=== PATIENT | male | born 1940 | race Hispanic/Latino ===

== ENCOUNTER 2018-03-02 16:40 | Inpatient (IN) | payer MEDICARE ==
[~2018-03-02] VITALS: Ht 170.2 cm; Wt 89.6 kg
[2018-03-02 17:40] LABS: BASOPHILS % 0.2 % (0.0-1.0); EOSINOPHILS # (AUTO) 0.1 (0.0-0.4); EOSINOPHILS % 0.5 % (0.0-6.0); HEMATOCRIT 49.7 % (38.2-49.6); LYMPHOCYTES % 7.4 % (18.0-39.1); MEAN CORPUSCULAR HEMOGLOBIN 30.1 pg (28-32); MEAN CORPUSCULAR HGB CONC 32.2 g/dL (31-35); MEAN CORPUSCULAR VOLUME 93.4 fL (81-99); MONOCYTES # (AUTO) 0.6 (0.2-0.8); MONOCYTES % 4.7 % (4.4-11.3); NEUTROPHILS # (AUTO) 11.2 (2.1-6.9); NEUTROPHILS % 86.7 % (38.7-80.0); PLATELET COUNT 239 x10e3/uL (140-360); RED BLOOD COUNT 5.32 x10e6/uL (4.3-5.7); RED CELL DISTRIBUTION WIDTH 13.7 % (11.7-14.4)
[2018-03-02 17:52] LABS: INR 1.08
[2018-03-02] MEDS ORDERED: SODIUM CHLORIDE 0.9% 1000ML 1,000 ML IV SCH (18:00)
[2018-03-02 18:01] LABS: ALANINE AMINOTRANSFERASE 56 IU/L (0-55); ALBUMIN 2.8 g/dL (3.5-5.0); ALBUMIN/GLOBULIN RATIO 0.5 (0.8-2.0); ALKALINE PHOSPHATASE 232 IU/L (40-150); AMYLASE 42 U/L (25-125); ANION GAP 18.9 mmol/L (8-16); BLOOD UREA NITROGEN 15 mg/dL (7-26); BUN/CREATININE RATIO 18 (6-25); CALCIUM 9.6 mg/dL (8.4-10.2); CARBON DIOXIDE 26 mmol/L (22-29); CHLORIDE 94 mmol/L (98-107); CREATINE KINASE 382 IU/L (30-200); CREATININE, SERUM 0.84 mg/dL (0.72-1.25); EST GLOMERULAR FILTRATION RATE > 60 ML/MIN (60-); GLUCOSE 367 mg/dL (74-118); LIPASE 14 U/L (8-78); POTASSIUM 3.9 mmol/L (3.5-5.1); SODIUM 135 mmol/L (136-145)
--- NOTE | 2018-03-02 18:31 | Diagnostic Imaging Report ---
EXAMINATION: Head CT HISTORY: Status post fall, hip pain, evaluate for intracranial hemorrhage COMPARISON: None. TECHNIQUE: Multidetector axial images were obtained without contrast from the foramen magnum to the vertex . The images were reconstructed using brain and bone algorithms. Thin section brain images were reformatted into coronal and sagittal planes. Image quality: Motion/streaking artifact limits the evaluation of the skull base and posterior cranial fossa. Dose modulation, iterative reconstruction, and/or weight based adjustment of the mA/kV was utilized to reduce the radiation dose to as low as reasonably achievable. FINDINGS: Parenchyma: 1. Moderate confluent supratentorial white matter hypodensities, most likely nonspecific chronic microvascular ischemic changes. 2. Cortical and subcortical encephalomalacia in the right occipital lobe, most likely the sequela from remote infarct in the right posterior cerebral artery distribution. 3. Small chronic lacunar infarct in the left putamen and right posterior lentiform nucleus as well as the bilateral frontal deep white matter. 4. No mass or hemorrhage. No CT evidence of acute territorial vascular insult. Extra-axial spaces:No abnormal density. No extra-axial fluid collections Brain volume: Normal for age. Ventricles: No hydrocephalus or displacement. Arteries: No density suggestive of thrombus. Dural sinuses: No abnormal density. Extra-axial spaces: No abnormal density. Foramen magnum: No mass, Chiari malformation, or basilar invagination. Sella: No obvious mass. Paranasal/mastoid sinuses: Imaged portions unremarkable. Skull/Scalp: No lytic or blastic lesions. No fractures. IMPRESSION: 1. No acute intracranial hemorrhage. 2. Moderate chronic microvascular ischemic changes. 3. Chronic right occipital infarct. Signed by: Dr. Jossie Pearl M.D. on 03/02/2018 6:26 PM
[2018-03-02] MEDS: VANCOMYCIN 1GM/NS 250 ML 250 ML IV SCH (18:35)
[2018-03-02] MEDS: CEFEPIME HCL 1 GM VIAL IV SCH (18:35)
--- NOTE | 2018-03-02 18:35 | Diagnostic Imaging Report ---
EXAMINATION: CT of the cervical spine HISTORY: Status post fall, neck pain COMPARISON: None available TECHNIQUE: Multidetector helical axial images were obtained without contrast from the foramen magnum to T1. The images were reconstructed using bone and soft tissue algorithms and were viewed in axial, sagittal and coronal planes. Dose modulation, iterative reconstruction, and/or weight based adjustment of the mA/kV was utilized to reduce the radiation dose to as low as reasonably achievable. FINDINGS: Alignment: Normal alignment and lordosis Soft tissues: Normal Vertebrae: Normal height and density. No acute fracture, infection or neoplasm Degenerative changes: C1-C2: Degenerative changes without stenosis. C2-C3: Normal C3-C4: Prominent facet arthrosis on the right side without stenoses C4-C5: Prominent bilateral facet arthrosis without stenoses C5-C6: Prominent bilateral facet arthrosis with mild foraminal stenoses C6-C7: Disc osteophyte formation, bilateral uncovertebral and facet arthrosis. Moderate foraminal stenoses on the left and moderately severe on the right. C7-T1: Normal Incidental findings: Partially visualized ill-defined opacity in the left lung apex. IMPRESSION: 1. No acute cervical spine postraumatic abnormalities. 2. Chronic multilevel degenerative changes. 3. Partially visualized left lung opacity. Note: Acute postraumatic spinal cord, vascular or ligamentous injuries cannot adequately be assessed by CT. Signed by: Dr. Jossie Pearl M.D. on 03/02/2018 6:30 PM
--- NOTE | 2018-03-02 18:52 | Diagnostic Imaging Report ---
PELVIS X-RAY - 1 VIEW HISTORY: \S\R/O FX \S\[id number] \S\0 \S\Y COMPARISON: None available. FINDINGS: Bones: No acute displaced fracture. Osseous alignment is within normal limits. Joints: Degenerative changes of the hips and sacroiliac joints. Advanced degenerative disease of L5-S1. Soft tissues: The soft tissues appear unremarkable. IMPRESSION: No acute radiographic abnormality. Signed by: Dr. Sil Lopez M.D. on 03/02/2018 6:47 PM
--- NOTE | 2018-03-02 18:55 | Diagnostic Imaging Report ---
EXAMINATION: CHEST SINGLE (PORTABLE) INDICATION: Trauma \S\ERMD ORDER \S\[id number] \S\1810 \S\Y COMPARISON: None FINDINGS: AP view TUBES and LINES: ICD device overlying the left lower chest with leads overlying the right ventricle and coronary sinus. LUNGS: Lungs are well inflated. Lungs are clear. Bilateral interstitial edema. PLEURA: No pleural effusion or pneumothorax. HEART AND MEDIASTINUM: Mild enlargement of the cardiac silhouette. Atherosclerotic calcifications of the aortic arch. BONES AND SOFT TISSUES: No acute osseous lesion. Soft tissues are unremarkable. The ribs behind the ICD device cannot be evaluated. UPPER ABDOMEN: No free air under the diaphragm. IMPRESSION: No acute posttraumatic abnormalities. Cardiomegaly with associated bilateral interstitial edema. Signed by: Dr. Sil Lopez M.D. on 03/02/2018 6:50 PM
--- NOTE | 2018-03-02 18:55 | Diagnostic Imaging Report ---
LEFT SHOULDER X-RAY - 2 VIEWS HISTORY: Fall \S\ORDER PLACED BY MD \S\[id number] \S\1810 \S\Y COMPARISON: Chest radiograph 03/02/2018 FINDINGS: Bones: No acute displaced fracture. Osseous alignment is within normal limits. Joints: The joint spaces are well-maintained. Soft tissues: Partially visualized left ICD device. IMPRESSION: No acute radiographic abnormality. Signed by: Dr. Sil Lopez M.D. on 03/02/2018 6:49 PM
--- NOTE | 2018-03-02 18:57 | Diagnostic Imaging Report ---
LEFT FOOT X-RAY - 2 VIEWS HISTORY: \S\ischemic toes, rule out osteomylitis, \S\[id number] \S\1809 COMPARISON: None available. FINDINGS: Bones: No acute displaced fracture. No cortical erosions. Indentation of the distal left first metatarsal with sclerotic margins appears chronic change. Osseous alignment is within normal limits. Joints: The joint spaces are well-maintained. Calcaneal enthesopathic. Soft tissues: The soft tissues appear unremarkable. IMPRESSION: No acute radiographic abnormality. Signed by: Dr. Sil Lopez M.D. on 03/02/2018 6:51 PM
[2018-03-02 19:14] LABS: CLARITY,URINE CLOUDY (CLEAR); COLOR,URINE YELLOW (YELLOW); KETONES,URINE NEGATIVE (NEGATIVE); LEUKOCYTE ESTERASE ,URINE NEGATIVE (NEGATIVE); NITRITE,URINE NEGATIVE (NEGATIVE); PROTEIN,URINE DIPSTICK 1+ (NEGATIVE); URINE UROBILINOGEN 0.2 mg/dL (0.2 - 1)
[2018-03-02 19:15] LABS: BILIRUBIN,URINE NEGATIVE (NEGATIVE)
[2018-03-02 19:23] LABS: BACTERIA,URINE MODERATE /HPF; EPITHELIAL CELLS,URINE FEW /LPF; RBC,URINE 0-5 /HPF (0-5); WBC,URINE (MAN) 0-5 /HPF (0-5); YEAST,URINE MANY
[2018-03-02] MEDS ORDERED: HEPARIN SOD (PORCINE) 5,000 UNIT/ML VIAL IV ONE (19:30)
[2018-03-02] MEDS ORDERED: ASPIRIN 81 MG CHEW TAB PO ONE (20:15)
[2018-03-02] MEDS ORDERED: ONDANSETRON HCL INJ 2 MG/ML VIAL IV PRN (20:15)
[2018-03-02] MEDS ORDERED: DEXTROSE 50% SYRINGE 50 ML IV PRN (20:15)
[2018-03-02] MEDS: HEPARIN 25,000U/0.45% NS 250ML 1,400 UNIT in SODIUM CHLORIDE 0.9% 250ML 0 ML IV SCH (20:20)
[2018-03-02] MEDS: INSULIN REGULAR, HUMAN 100 UNIT/1 ML 3ML VIAL SQ SCH (21:00)
[2018-03-02 22:00] VITALS: BP 148/82
[2018-03-03] VITALS (33 sets, daily range): BP systolic 118–162; BP diastolic 65–110
[2018-03-03 05:09] LABS: BASOPHILS % 0.1 % (0.0-1.0); EOSINOPHILS # (AUTO) 0.2 (0.0-0.4); EOSINOPHILS % 1.2 % (0.0-6.0); HEMATOCRIT 38.6 % (38.2-49.6); HEMOGLOBIN 12.3 g/dL (14.0-18.0); LYMPHOCYTES # (AUTO) 1.1 (1.0-3.2); LYMPHOCYTES % 7.6 % (18.0-39.1); MEAN CORPUSCULAR HEMOGLOBIN 29.4 pg (28-32); MEAN CORPUSCULAR HGB CONC 31.9 g/dL (31-35); MEAN CORPUSCULAR VOLUME 92.3 fL (81-99); MONOCYTES # (AUTO) 1.2 (0.2-0.8); NEUTROPHILS # (AUTO) 11.9 (2.1-6.9); NEUTROPHILS % 82.4 % (38.7-80.0); PLATELET COUNT 179 x10e3/uL (140-360); RED BLOOD COUNT 4.18 x10e6/uL (4.3-5.7); RED CELL DISTRIBUTION WIDTH 13.6 % (11.7-14.4)
[2018-03-03] MEDS: CEFEPIME HCL 1 GM VIAL IV SCH ×2 (05:33→17:18)
[2018-03-03] MEDS ORDERED: ACETAMINOPHEN 325 MG TAB PO PRN (06:45)
[2018-03-03] MEDS: INSULIN REGULAR, HUMAN 100 UNIT/1 ML 3ML VIAL SQ SCH ×4 (07:30→20:47)
[2018-03-03 08:37] LABS: CREATINE KINASE MB 3.1 ng/mL (0-5.0)
[2018-03-03 08:56] LABS: ALANINE AMINOTRANSFERASE 40 IU/L (0-55); ALBUMIN 2.1 g/dL (3.5-5.0); ALBUMIN/GLOBULIN RATIO 0.5 (0.8-2.0); ALKALINE PHOSPHATASE 139 IU/L (40-150); ANION GAP 14.4 mmol/L (8-16); BLOOD UREA NITROGEN 14 mg/dL (7-26); BUN/CREATININE RATIO 21 (6-25); CALCIUM 8.4 mg/dL (8.4-10.2); CARBON DIOXIDE 25 mmol/L (22-29); CHLORIDE 101 mmol/L (98-107); CHOL/HDL RATIO 3.2 (3.9-4.7); CHOLESTEROL 87 MD/DL (0-199); CREATININE, SERUM 0.67 mg/dL (0.72-1.25); EST GLOMERULAR FILTRATION RATE > 60 ML/MIN (60-); GLUCOSE 192 mg/dL (74-118); HDL CHOLESTEROL 27 MG/DL (40-60); LDL CHOLESTEROL 48 MG/DL (60-130); MAGNESIUM 1.4 MG/DL (1.3-2.1); POTASSIUM 3.4 mmol/L (3.5-5.1); SODIUM 137 mmol/L (136-145); TRIGLYCERIDES 59 MG/DL (0-149)
[2018-03-03] MEDS: PANTOPRAZOLE 40 MG 10ML VIAL IV SCH (09:00)
[2018-03-03] MEDS: SENNOSIDES 8.6 MG TAB PO SCH (09:00)
[2018-03-03] MEDS: VANCOMYCIN 1GM/NS 250 ML 250 ML IV SCH ×2 (09:00→21:00)
[2018-03-03] MEDS: HEPARIN 25,000U/0.45% NS 250ML 1,400 UNIT in SODIUM CHLORIDE 0.9% 250ML 0 ML IV SCH (12:07)
[2018-03-03 12:10] LABS: CREATINE KINASE MB 0.8 ng/mL (0-5.0)
--- NOTE | 2018-03-03 12:36 | Consultation ---
DATE OF CONSULTATION: March 03, 2018 CARDIOLOGY CONSULTATION REQUESTING PHYSICIAN: Dr. Aryan Aponte REASON FOR CONSULTATION: [id number] myocardial infarction and peripheral arterial disease. HISTORY OF PRESENT ILLNESS: This is a 77-year-old man with history of atrial fibrillation, coronary artery disease with prior myocardial infarction, history of CVA with residual hemiparesis and aphasia, hypertension, diabetes mellitus, hyperlipidemia, permanent pacemaker implantation, and reported congestive heart failure, who presented from his group home after a fall. History is limited due to the patient's confusion. All history is obtained from the electronic medical record. The patient apparently fell out of bed yesterday morning and was brought to [facility] for evaluation. In the ER, he was found to have elevated troponin and occlusion of the distal left superficial femoral artery. He was admitted for further evaluation. The patient denies any chest pain or shortness of breath. No further history could be obtained. REVIEW OF SYSTEMS: Unable to obtain secondary to the patient's mental status. PAST MEDICAL HISTORY 1. Atrial fibrillation. 2. History of CVA with resulting left hemiparesis and aphasia. 3. Coronary artery disease with prior myocardial infarction. 4. Reported history of congestive heart failure. 5. Diabetes mellitus. 6. Hypertension. 7. Hyperlipidemia. 8. Status post permanent pacemaker implantation. PAST SURGICAL HISTORY: Cholecystectomy. ALLERGIES: NO KNOWN DRUG ALLERGIES. MEDICATIONS: Please see medication list once obtained from the group home. SOCIAL HISTORY: Currently resides in a group home. No further history could be obtained due to patient confusion. FAMILY HISTORY: Noncontributory. PHYSICAL EXAMINATION VITAL SIGNS: Temperature 98.2 degrees, pulse 69, respiratory rate 12, blood pressure 153/88, oxygen saturation 100% on room air. GENERAL: Elderly man in no acute distress, well developed and well nourished. HEENT: Normocephalic and atraumatic. Pupils are equal. No scleral icterus. NECK: Supple. No thyromegaly or cervical lymphadenopathy. LUNGS: Clear to auscultation bilaterally. No wheezes or crackles. CARDIOVASCULAR: Normal rate, regular rhythm. No murmur. Normal S1 and S2. ABDOMEN: Soft. Nontender. EXTREMITIES: Cool to palpation in the distal left lower extremity with a soft-tissue abrasion noted on the left foot. LABS: WBC 14.42, hemoglobin 12.3, hematocrit 38.6, platelets 179. Sodium 137, potassium 3.4, chloride 101, CO2 25, BUN 14, creatinine 0.67. BNP 1332. Troponin I 0.423. Cholesterol 87, triglycerides 59, LDL 48, HDL 27. Urine culture is growing gram-negative bacilli. IMPRESSION 1. Elevated troponin. 2. Peripheral arterial disease with occlusion of the left superficial femoral artery. 3. Atrial fibrillation. 4. Coronary artery disease, status post prior myocardial infarction. 5. Reported history of congestive heart failure, status post implantable cardioverter-defibrillator. 6. Diabetes mellitus. 7. Hypertension. 8. Hyperlipidemia. 9. 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 RECOMMENDATIONS: Obtain echocardiogram. Will discuss cardiac catheterization and peripheral angiogram with the patient's power of litigation attorney. We are attempting to contact them at this time but have not been able to reach the family. In the meantime, continue heparin drip. Trend cardiac enzymes. Antibiotics per primary service. The patient will likely need further diuresis once his acute issues have resolved. Obtain ICD interrogation. Thank you for this consult. We will continue to follow. Job#: [id number]
--- NOTE | 2018-03-03 13:14 | History and Physical ---
CHIEF COMPLAINT: Left foot, ischemic changes. HISTORY OF PRESENT ILLNESS: This is a 77-year-old man who is a resident of [facility], now being sent over to the hospital due to ischemic change in the left foot. Patient is a poor historian unable to provide much history and he has speech impairment due to previous stroke. PAST MEDICAL HISTORY: Hypotension systolic congestive heart failure with ventricular ejection fraction 25 to 30%, status post AICD, hypertension, stroke, atrial fibrillation, diabetes mellitus, syncope, pneumonia. PAST SURGICAL HISTORY: AICD placement, status post ablation of atrial fibrillation. ALLERGIES: PER ELECTRONIC MEDICAL RECORD. SOCIAL HISTORY: Patient lives with his daughter. He is . He quit cigarettes in 2002. MEDICATIONS: Per electronic medical record. REVIEW OF SYSTEMS: Unobtainable. PHYSICAL EXAMINATION VITAL SIGNS: Have been reviewed. GENERAL: A tired-appearing man resting in bed. HEENT: Anicteric. CARDIOVASCULAR: Normal S1 and S2. LUNGS: He has bilateral breath sounds. ABDOMEN: Soft, nontender. EXTREMITIES: He has right pedal edema. He has left foot ischemic changes at the toes, blue black changes, cold left foot, unable to palpate the dorsalis pedis on the left foot. NEUROLOGIC: The patient mumbles, but he is awake and alert. SKIN: Dry. PSYCHIATRIC: Flat affect. LABS: Reviewed. MEDICATIONS: Reviewed. ASSESSMENT AND PLAN: This is a 77-year-old man with; 1. Left foot ischemia. 2. Diabetes mellitus type 2. 3. Acute exacerbation of systolic congestive heart failure. 4. Elevated troponin. 5. Transaminitis. 6. Urinary tract infection. 7. Pulmonary edema. 8. Paroxysmal atrial fibrillation as well as left bundle branch block. 9. History of stroke. PLAN 1. Heparin drip. 2. Cardiology for heart catheterization and angiogram. 3. Recheck labs this afternoon. 4. Podiatry consultation. 5. Continue IV vancomycin and IV cefepime for signs of early sepsis with gram-negative billy urinary tract infection. 6. Use TPI while on anticoagulation. 7. Morphine for pain. 8. Monitor closely. 9. Followup labs this afternoon and followup cardiology interventions. Job#: [id number] AYLEEN
[2018-03-03] MEDS ORDERED: LIDOCAINE HCL 2% LOCAL 20 ML VIAL ONE (13:31)
[2018-03-03] MEDS ORDERED: HEPARIN SOD/SOD CHLORIDE 2,000 ML ONE (13:31)
[2018-03-03] MEDS ORDERED: IOPAMIDOL 300MG/ML 100 ML INFUS..BTL IV ONE (13:32)
[2018-03-03] MEDS ORDERED: IOPAMIDOL 370 MG/ML 200 ML INFUS..BTL INJ ONE (13:32)
[2018-03-03] MEDS ORDERED: SODIUM CHLORIDE 0.9% 1000ML 1,000 ML ONE (13:57)
[2018-03-03] MEDS ORDERED: MIDAZOLAM HCL 2 MG/2 ML VIAL ONE (14:00)
[2018-03-03] MEDS ORDERED: FENTANYL CITRATE/PF 100MCG/2 ML INJ ONE (14:01)
[2018-03-03] MEDS ORDERED: BIVALIRUDIN 250 MG/VIAL IV ONE (14:48)
[2018-03-03] MEDS ORDERED: SODIUM CHLORIDE 0.9% 50ML 50 ML ONE (14:48)
[2018-03-03 16:47] LABS: HEMOGLOBIN 12.9 g/dL (14.0-18.0)
[2018-03-03] MEDS ORDERED: STERILE WATER IV SCH (17:00)
[2018-03-03] MEDS ORDERED: ALTEPLASE IV SCH (17:00)
[2018-03-03 17:02] LABS: ANION GAP 16.8 mmol/L (8-16); BLOOD UREA NITROGEN 15 mg/dL (7-26); BUN/CREATININE RATIO 22 (6-25); CALCIUM 8.6 mg/dL (8.4-10.2); CARBON DIOXIDE 23 mmol/L (22-29); CHLORIDE 101 mmol/L (98-107); CREATININE, SERUM 0.69 mg/dL (0.72-1.25); EST GLOMERULAR FILTRATION RATE > 60 ML/MIN (60-); GLUCOSE 141 mg/dL (74-118); MAGNESIUM 1.5 MG/DL (1.3-2.1); POTASSIUM 3.8 mmol/L (3.5-5.1); SODIUM 137 mmol/L (136-145)
--- NOTE | 2018-03-03 19:34 | Operative Report ---
DATE OF PROCEDURE: March 03, 2018 PROCEDURE: Cardiac catheterization. INDICATIONS: Wiu-PU-mciulquea DC and acute limb ischemia of the left lower extremity. PRE-SEDATION ASSESSMENT: Medical history, social history, and previous experience with anesthesia were reviewed and documented in the preoperative medical record. Results of relevant diagnostic studies were reviewed. Planned choice of anesthesia, risks, complications, benefits and alternatives were discussed with the patient's power of assistant city attorney. Patient was deemed an appropriate candidate for moderate sedation for this procedure. CONSENT: The benefits, risks, complications and alternatives to the procedure were discussed with the patient's power of assistant city attorney, his [id number], Ms. Mota, and informed consent was obtained prior to the procedure. MEDICATIONS: Please see nursing notes for medications administered during the procedure. PROCEDURE: The patient was brought to the cardiac catheterization laboratory in a fasting state. Right groin was prepped and draped in a sterile fashion, and 1% lidocaine was used to infiltrate the right groin over the right common femoral artery. A 5-Guinean sheath was placed in the right common femoral artery using the modified Seldinger technique. Coronary angiography was performed using a Anthony left and Anthony right 5-Guinean catheters. A left heart cath was performed using the Anthony right catheter. All catheters were removed over a wire. Prior to performing coronary angiography, a 5-Guinean Omni Flush catheter was placed in the abdominal aorta over the wire, and abdominal aortography was performed. A stiff angled Glidewire was used to access the contralateral common iliac artery and advanced into the left common femoral artery. The Omni Flush catheter was advanced into the left SFA, and BSA imaging was performed. The stiff angled Glidewire was replaced in the left SFA, and the Omni Flush catheter was removed. A 5-Guinean sheath was exchanged for a 6-Guinean 90 cm Destination sheath, which was placed in the left SFA just above the point of occlusion. Primary thrombectomy was performed through the sheath with a 60 mL syringe. Angiomax bolus and drip were started. A Roadrunner wire was advanced distally, and a 20 cm tPA catheter was placed at the point of occlusion. The sheath was sutured in place, and a dressing was applied. Case ended without any complications. Estimated blood loss approximately 60 mL. SIGNIFICANT FINDINGS: Right dominant coronary system with no significant coronary artery disease. No significant disease of bilateral iliac arteries. Left SFA has an acute occlusion with thrombus in the mid to distal portion. Despite significant thrombectomy and removal of thrombus, no significant reflow was achieved. Therefore, a thrombectomy catheter was placed. COMPLICATIONS: None. SPECIMENS REMOVED: None. IMPLANTS: None. ESTIMATED BLOOD LOSS: 60 mL. RECOMMENDATIONS: Will plan on infused intraarterial tPA at the rate of 0.1 mg per kg per minute for 12 hours overnight. Continue Angiomax infusion concomitantly. Will plan to bring the patient back to the mobile lab technician tomorrow for further treatment of his peripheral arterial disease and acute limb ischemia. Thank you for this consult. Will continue to follow. Job#: [id number] EV
[2018-03-03] MEDS: STERILE WATER IV SCH (20:27)
[2018-03-03] MEDS: ALTEPLASE IV SCH (20:27)
[2018-03-03] MEDS: SODIUM CHLORIDE 0.9% IV SCH ×2 (20:43→21:00)
[2018-03-03] MEDS: BIVALIRUDIN IV SCH ×2 (20:43→21:00)
[2018-03-03] MEDS: MORPHINE SULFATE 2 MG/ML SYR IV PRN (21:43)
[2018-03-04] VITALS (78 sets, daily range): BP systolic 80–143; BP diastolic 52–100
[2018-03-04] MEDS: BIVALIRUDIN IV SCH ×5 (00:07→17:00)
[2018-03-04] MEDS: SODIUM CHLORIDE 0.9% IV SCH ×5 (00:07→17:00)
[2018-03-04] MEDS: STERILE WATER IV SCH (02:26)
[2018-03-04] MEDS: ALTEPLASE IV SCH (02:26)
[2018-03-04 05:10] LABS: BASOPHILS % 0.2 % (0.0-1.0); EOSINOPHILS # (AUTO) 0.1 (0.0-0.4); EOSINOPHILS % 0.5 % (0.0-6.0); HEMATOCRIT 29.9 % (38.2-49.6); HEMOGLOBIN 9.8 g/dL (14.0-18.0); LYMPHOCYTES # (AUTO) 0.9 (1.0-3.2); LYMPHOCYTES % 6.7 % (18.0-39.1); MEAN CORPUSCULAR HEMOGLOBIN 30.2 pg (28-32); MEAN CORPUSCULAR HGB CONC 32.8 g/dL (31-35); MONOCYTES % 7.1 % (4.4-11.3); NEUTROPHILS # (AUTO) 11.3 (2.1-6.9); NEUTROPHILS % 84.9 % (38.7-80.0); PLATELET COUNT 201 x10e3/uL (140-360); RED BLOOD COUNT 3.25 x10e6/uL (4.3-5.7); RED CELL DISTRIBUTION WIDTH 13.9 % (11.7-14.4)
[2018-03-04 05:33] LABS: ANION GAP 14.2 mmol/L (8-16); BLOOD UREA NITROGEN 17 mg/dL (7-26); BUN/CREATININE RATIO 27 (6-25); CALCIUM 7.8 mg/dL (8.4-10.2); CARBON DIOXIDE 23 mmol/L (22-29); CHLORIDE 103 mmol/L (98-107); CREATININE, SERUM 0.62 mg/dL (0.72-1.25); EST GLOMERULAR FILTRATION RATE > 60 ML/MIN (60-); GLUCOSE 149 mg/dL (74-118); POTASSIUM 3.2 mmol/L (3.5-5.1); SODIUM 137 mmol/L (136-145)
[2018-03-04] MEDS: CEFEPIME HCL 1 GM VIAL IV SCH ×2 (05:52→18:14)
[2018-03-04] MEDS: INSULIN REGULAR, HUMAN 100 UNIT/1 ML 3ML VIAL SQ SCH ×4 (07:30→20:29)
[2018-03-04] MEDS ORDERED: POTASSIUM CHLORIDE 20 MEQ/100 ML IV ONE (08:00)
[2018-03-04 08:11] LABS: HEMATOCRIT 30.7 % (38.2-49.6); HEMOGLOBIN 10.1 g/dL (14.0-18.0)
[2018-03-04] MEDS: SENNOSIDES 8.6 MG TAB PO SCH (09:00)
[2018-03-04] MEDS: VANCOMYCIN 1GM/NS 250 ML 250 ML IV SCH ×2 (09:31→20:28)
[2018-03-04] MEDS: PANTOPRAZOLE 40 MG 10ML VIAL IV SCH (09:31)
[2018-03-04 13:53] LABS: HEMATOCRIT 30.1 % (38.2-49.6); HEMOGLOBIN 9.5 g/dL (14.0-18.0)
--- NOTE | 2018-03-04 14:14 | Consultation ---
DATE OF CONSULTATION: March 04, 2018 PODIATRY CONSULTATION REASON FOR CONSULTATION: Left foot ischemia. HISTORY OF PRESENT ILLNESS: Mr. Mota is a pleasant 77[facility]-old [facility] resident who was admitted secondary to ischemic changes associated to the left foot. Currently in the ICU. Has been endovascularly intervened by Interventional Cardiology. PAST MEDICAL HISTORY: Hypertension, heart failure, hypertension, stroke, atrial fibrillation, diabetes and pneumonia. PAST SURGICAL HISTORY: AICD and recent endovascular intervention left lower extremity. ALLERGIES: Per the EMR. SOCIAL HISTORY: residential resident. FAMILY HISTORY: Noncontributory. ELEVEN-POINT REVIEW OF SYSTEMS: Unobtainable. PHYSICAL EXAMINATION GENERAL: No apparent distress. VITAL SIGNS: Stable. He is afebrile. HEENT: Normocephalic, atraumatic, anicteric. ABDOMEN: Soft, nontender, nondistended. RESPIRATORY: Symmetrical expansion. No distress. PSYCHIATRIC: Flat affect. EXTREMITIES: Indeed significant cyanosis associated to the left lower extremity, particularly the foot along the forefoot area with very cool to touch digits. Midfoot, hindfoot and the rest of the extremity are warm to touch. ASSESSMENT: Gangrenous changes left foot. PLAN: The patient has been endovascularly intervened. At this point will need to await clinical progression and ultimately start making decisions as to how to proceed. In the interim, keep the extremity protected, dry and intact. I would like to thank Dr. Aponte for allowing me the opportunity to participate in the care of this patient. Job#: [id number] EV
[2018-03-04] MEDS ORDERED: LIDOCAINE HCL 2% LOCAL 20 ML VIAL ONE (14:39)
[2018-03-04] MEDS ORDERED: HEPARIN SOD/SOD CHLORIDE 2,000 ML ONE (14:40)
[2018-03-04] MEDS ORDERED: SODIUM CHLORIDE 0.9% 1000ML 1,000 ML ONE ×2 (14:40→16:28)
[2018-03-04] MEDS ORDERED: IOPAMIDOL 300MG/ML 100 ML INFUS..BTL IV ONE ×2 (14:40→16:03)
[2018-03-04] MEDS ORDERED: FENTANYL CITRATE/PF 100MCG/2 ML INJ ONE (14:42)
[2018-03-04] MEDS ORDERED: MIDAZOLAM HCL 2 MG/2 ML VIAL ONE (14:42)
[2018-03-04] MEDS ORDERED: VERAPAMIL HCL 2.5 MG/ML 2 ML VIAL ONE (16:28)
[2018-03-04] MEDS ORDERED: ASPIRIN 325 MG TAB ONE (16:54)
[2018-03-04] MEDS: APIXABAN 5 MG TABLET PO SCH (20:28)
--- NOTE | 2018-03-04 21:48 | Operative Report ---
DATE OF PROCEDURE: March 04, 2018 PROCEDURE: Cardiac catheterization report. INDICATIONS FOR PROCEDURE: Acute limb ischemia of left lower extremity with left superficial femoral artery and popliteal thrombosis. PRE-SEDATION ASSESSMENT: Medical history, social history, previous experience with anesthesia was reviewed and documented, preoperative medical record results of relevant diagnostic studies were reviewed, planned choice of anesthesia, risks, complications, benefits, and alternatives were discussed. Patient was deemed appropriate candidate for moderate sedation. Consent, benefits, risks, complications, alternatives to the procedure were discussed to the patient's [id number], and informed consent was obtained over the phone. MEDICATIONS: Please see nursing notes for medications administered during the procedure. PROCEDURE: Patient was brought to the cardiac catheterization laboratory in a fasting state. Right groin was prepped and draped in a sterile fashion. Prior 90-cm sheath and thrombectomy catheter was in place. Catheter was removed over a wire. There was small residual thrombus seen in the distal SFA, which was aspirated with the 90-cm sheath. Peripheral angiography was performed of the distal SFA and [id number]-[id number] arteries, which showed 80% lesion in the popliteal artery, which was calcified and 90% lesion of the ostial anterior tibial, as well as the distal VENETIAN BLIND MACHINE OPERATOR of the posterior tibial artery. Decision was made to proceed with the PRESS SET UP of the anterior tibial, as well as the popliteal artery for PRESS SET UP of the anterior tibial artery. A 0.014-Whisper wire was used to cross the lesion. A 2.5- x 40-mm balloon was used to angioplasty the lesion at 18 atmospheres of pressure held for 3 minutes for PRESS SET UP of the popliteal artery. The Whisper wire was exchanged for ViperWire and 1.5 solid CSI bur was used at low and medium speeds to perform atherectomy of the popliteal artery. Drug-coated balloon angioplasty was performed using a 6.0- x 40-mm Lutonix balloon deployed at 8 atmospheres for 4 minutes. This provided excellent angiographic results. The long 90-cm sheath was then removed over a wire and a short 6-Trinidadian sheath was placed in the right common femoral artery. Runoff of the right lower extremity was performed through the short sheath. The sheath was removed and closed with Mynx vascular closure device with and manual compression. Achieved adequate hemostasis. Antiplatelet therapy was given in the director of cardiac cath lab using aspirin. Patient will be restarted on Eliquis later tonight after stopping his Angiomax. COMPLICATIONS: None. SPECIMEN REMOVED: None. IMPLANTS: None. ESTIMATED BLOOD LOSS: 50 mL. RECOMMENDATIONS 1. Stop Angiomax for 1 hour post procedure and start Eliquis 5 mg b.i.d. 2. Two hours of strict bedrest. 3. Continue optimal medical therapy and risk factor management. Thank you for this consult. Will continue to follow. Job#: [id number] CQ
[2018-03-05] VITALS (83 sets, daily range): BP systolic 69–151; BP diastolic 29–75
[2018-03-05] MEDS: MORPHINE SULFATE 2 MG/ML SYR IV PRN ×2 (02:57→20:00)
[2018-03-05 04:45] LABS: BASOPHILS % 0.1 % (0.0-1.0); EOSINOPHILS % 0.1 % (0.0-6.0); HEMATOCRIT 27.5 % (38.2-49.6); HEMOGLOBIN 8.7 g/dL (14.0-18.0); LYMPHOCYTES # (AUTO) 1.1 (1.0-3.2); LYMPHOCYTES % 5.4 % (18.0-39.1); MEAN CORPUSCULAR HEMOGLOBIN 30.1 pg (28-32); MEAN CORPUSCULAR HGB CONC 31.6 g/dL (31-35); MEAN CORPUSCULAR VOLUME 95.2 fL (81-99); MONOCYTES # (AUTO) 1.3 (0.2-0.8); MONOCYTES % 6.7 % (4.4-11.3); NEUTROPHILS # (AUTO) 17.4 (2.1-6.9); NEUTROPHILS % 86.9 % (38.7-80.0); PLATELET COUNT 201 x10e3/uL (140-360); RED BLOOD COUNT 2.89 x10e6/uL (4.3-5.7); RED CELL DISTRIBUTION WIDTH 14.3 % (11.7-14.4)
[2018-03-05 05:07] LABS: ALANINE AMINOTRANSFERASE 23 IU/L (0-55); ALBUMIN/GLOBULIN RATIO 0.6 (0.8-2.0); ALKALINE PHOSPHATASE 115 IU/L (40-150); ANION GAP 14.9 mmol/L (8-16); BLOOD UREA NITROGEN 20 mg/dL (7-26); BUN/CREATININE RATIO 27 (6-25); CALCIUM 7.8 mg/dL (8.4-10.2); CARBON DIOXIDE 21 mmol/L (22-29); CHLORIDE 108 mmol/L (98-107); CREATININE, SERUM 0.73 mg/dL (0.72-1.25); EST GLOMERULAR FILTRATION RATE > 60 ML/MIN (60-); GLUCOSE 145 mg/dL (74-118); POTASSIUM 3.9 mmol/L (3.5-5.1); SODIUM 140 mmol/L (136-145)
--- NOTE | 2018-03-05 05:55 | Progress Note ---
DATE: March 04, 2018 CARDIOLOGY PROGRESS NOTE SUBJECTIVE: Had thrombectomy and TRANSCRIPTION SPECIALIST of his left lower extremity today. Doing well post procedurally. OBJECTIVE VITAL SIGNS: Temperature 98.1, pulse 60, respiratory rate 16, blood pressure 119/60, satting 100% on room air. GENERAL: Chronically ill-appearing male, no acute distress. CARDIOVASCULAR: Regular rate and rhythm. No murmurs, rubs or gallops. Palpable carotid pulses. Palpable radial pulses. Palpable femoral pulses. LUNGS: Clear to auscultation bilaterally. ABDOMEN: Soft, nontender, nondistended. NEURO AND PSYCH: Patient is alert and oriented x0. TELEMETRY DATA: Reviewed. Shows paced rhythm. ASSESSMENT 1. Elevated troponin. 1. Peripheral arterial disease with acute occlusion of the left superficial femoral artery with thrombus. 2. Atrial fibrillation. 3. Coronary artery disease status post prior myocardial infarction. 4. Reported history of congestive heart failure status post biventricular implantable cardioverter-defibrillator. 5. Diabetes. 6. Hypertension. 7. Hyperlipidemia. 8. 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 RECOMMENDATIONS: Patient had a coronary angiogram done on March 03, showed no significant coronary artery disease. Had left lower extremity angiogram performed yesterday, showed acute thrombosis of his left distal SFA and popliteal artery. Had overnight tPA infusion with successful recanalization and aspiration thrombectomy. Performed secondary thrombectomy today with TRANSCRIPTION SPECIALIST of his popliteal and anterior tibial arteries with good 2-vessel runoff to the foot. Has ischemic toes that may require amputation in the future. Podiatry is following. Will start him on aspirin and Eliquis given his atrial fibrillation and acute thrombosis of his left SFA. Thank you for this consult. Will continue to follow. Job#: [id number] TOMMIE
[2018-03-05] MEDS: CEFEPIME HCL 1 GM VIAL IV SCH ×2 (06:07→19:30)
[2018-03-05] MEDS: INSULIN REGULAR, HUMAN 100 UNIT/1 ML 3ML VIAL SQ SCH ×3 (07:56→16:30)
--- NOTE | 2018-03-05 08:04 | Progress Note ---
DATE: March 04, 2018 TIME OF SERVICE: 6:30 p.m. Overnight, patient had a t-PA infusion. He is in the ICU. REVIEW OF SYSTEMS: Unobtainable. PHYSICAL EXAMINATION VITAL SIGNS: Reviewed. GENERAL APPEARANCE: A tired-appearing man resting in bed. HEENT: Anicteric. CARDIOVASCULAR: Normal S1/S2. LUNGS: Moderate breath sounds. ABDOMEN: Soft, nontender. EXTREMITIES: He has left foot ischemic changes. Dorsalis pedis cannot be palpated. Cool extremities. change of the toes. NEUROLOGIC: Mumbles, awake. SKIN: Dry. PSYCHIATRIC: Flat affect. LABS: Reviewed. MEDICATIONS: Reviewed. ASSESSMENT: An 77-year-old man. 1. Left ischemic foot. 2. Diabetes mellitus, type 2. 3. Acute exacerbation of systolic congestive heart failure. 4. Elevated troponin. 5. Transaminitis. 6. Urinary tract infection. 7. Pulmonary edema. 8. Paroxysmal atrial fibrillation. 9. Left bundle-branch block. 10. History of stroke. 11. Acute limb ischemia of the left leg. 12. Arterial thrombosis in the left superficial femoral artery. PLAN 1. He received heparin. 2. Received t-PA. 3. Heart catheterization pending. 4. IV antibiotics, vancomycin and cefepime. 5. Morphine for pain. 6. Monitor closely in the ICU. CRITICAL CARE TIME: More than 35 minutes. Job#: [id number] CQ
[2018-03-05] MEDS ORDERED: ASPIRIN 325 MG TAB PO SCH (09:00)
--- NOTE | 2018-03-05 09:02 | Progress Note ---
DATE: March 05, 2018 TIME OF SERVICE: 7 a.m. SUBJECTIVE: Overnight, the patient had a 2nd t-PA procedure with improvement in flow. Left heart cath was negative. The patient had coronary angiogram which was negative. REVIEW OF SYSTEMS: Unobtainable. PHYSICAL EXAMINATION VITAL SIGNS: Reviewed. GENERAL APPEARANCE: A tired-appearing man, resting in bed. HEENT: Anicteric. CARDIOVASCULAR: Normal S1, S2. LUNGS: Moderate breath sounds. ABDOMEN: Soft, nontender. EXTREMITIES: Left foot with blue-black changes. Pulses, unable to palpate dorsalis pedis, but the left foot is warm now and Doppler ultrasound detects pulse. SKIN: Dry. PSYCHIATRIC: Flat affect. NEUROLOGIC: He moves his extremities. LABS: Reviewed. MEDICATIONS: Reviewed. ASSESSMENT: The patient is a 77-year-old man with, 1. Acute limb ischemia of the left leg. 2. Acute thrombus of the superficial femoral artery in the left leg. 3. Diabetes mellitus type 2. Hemoglobin A1c was 6.7, LDL 48 and triglycerides 59. 4. Acute exacerbation of systolic congestive heart failure. 5. Elevated troponin. 6. Transaminitis. 7. Urinary tract infection. 8. Pulmonary edema. 9. Paroxysmal atrial fibrillation with left bundle-branch block. 10. History of stroke. PLAN 1. Continue aspirin and apixaban. 2. Leukocytosis is worse today. The patient remains on IV vancomycin and IV cefepime. 3. Urine is positive for Morganella morganii which is sensitive to cefepime. 4. Physical therapy consultation. 5. LTAC evaluation. 6. The patient may need amputation of the toes in the near future. Consult with podiatry. Job#: [id number]
[2018-03-05] MEDS ORDERED: SODIUM CHLORIDE 0.9% 250ML 250 ML ONE (09:06)
[2018-03-05] MEDS: SENNOSIDES 8.6 MG TAB PO SCH (09:12)
[2018-03-05] MEDS: VANCOMYCIN 1GM/NS 250 ML 250 ML IV SCH ×2 (09:12→21:00)
[2018-03-05] MEDS: ASPIRIN 81 MG ENTERIC COATED PO SCH (09:12)
[2018-03-05] MEDS: PANTOPRAZOLE 40 MG 10ML VIAL IV SCH (09:12)
[2018-03-05] MEDS: APIXABAN 5 MG TABLET PO SCH ×2 (09:12→21:00)
--- NOTE | 2018-03-05 10:14 | Progress Note ---
DATE: March 05, 2018 CARDIOLOGY PROGRESS NOTE SUBJECTIVE: The patient was somnolent. He did not respond to verbal or tactile stimuli. OBJECTIVE VITAL SIGNS: Temperature 98.3 degrees, pulse 60, respiratory rate 16, blood pressure 72/40, oxygen saturation 100% on room air. GENERAL: Chronically ill-appearing man in no acute distress. Somnolent. LUNGS: Clear to auscultation bilaterally with no wheezes or crackles. CARDIOVASCULAR: Normal rate, regular rhythm. No murmur. Normal S1 and S2. ABDOMEN: Soft, nontender. EXTREMITIES: Gangrenous changes of the left 4th and 5th toes. Palpable left dorsalis pedis and posterior tibial arteries. CARDIAC MEDICATIONS 1. Aspirin 81 mg p.o. daily. 2. Apixaban 5 mg p.o. q.12 h. LABS: WBC 20.03, hemoglobin 8.7, hematocrit 27.5, platelets 201. Sodium 140, potassium 3.9, chloride 108, CO2 21, BUN 20, creatinine 0.73. Urine culture growing Morganella morganii. TELEMETRY: Reviewed, paced. IMPRESSION 1. Elevated troponin. 1. Peripheral arterial disease with acute occlusion of the left superficial femoral artery with thrombus. 2. Atrial fibrillation. 3. Coronary artery disease, status post prior myocardial infarction. 4. Reported history of congestive heart failure, status post biventricular implantable cardioverter-defibrillator. 5. Diabetes mellitus. 6. Hypertension. 7. Hyperlipidemia. 8. 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 RECOMMENDATIONS: Patient had coronary angiogram done during admission without significant coronary artery disease. Left lower extremity peripheral angiogram revealed acute thrombosis in the distal left femoral artery and popliteal artery. He was treated with tPA infusion overnight with successful recanalization and aspiration thrombectomy. He now has 2-vessel runoff to the foot, although given gangrenous changes, he may need amputation in the future. Podiatry is following. Continue aspirin and Eliquis. Antibiotics per primary service. Monitor the patient closely in the ICU given hypotension. Supportive care. Thank you for this consult. Will continue to follow. Job#: [id number]
[2018-03-06] VITALS (88 sets, daily range): BP systolic 53–153; BP diastolic 29–119
[2018-03-06] MEDS: INSULIN REGULAR, HUMAN 100 UNIT/1 ML 3ML VIAL SQ SCH ×5 (00:47→21:00)
[2018-03-06] MEDS: MORPHINE SULFATE 2 MG/ML SYR IV PRN (04:36)
[2018-03-06 04:39] LABS: BASOPHILS % 0.1 % (0.0-1.0); EOSINOPHILS # (AUTO) 0.1 (0.0-0.4); EOSINOPHILS % 0.6 % (0.0-6.0); HEMATOCRIT 21.4 % (38.2-49.6); LYMPHOCYTES # (AUTO) 1.1 (1.0-3.2); LYMPHOCYTES % 5.3 % (18.0-39.1); MEAN CORPUSCULAR HEMOGLOBIN 30.4 pg (28-32); MEAN CORPUSCULAR HGB CONC 31.8 g/dL (31-35); MEAN CORPUSCULAR VOLUME 95.5 fL (81-99); MONOCYTES # (AUTO) 1.4 (0.2-0.8); MONOCYTES % 6.9 % (4.4-11.3); NEUTROPHILS # (AUTO) 17.7 (2.1-6.9); NEUTROPHILS % 85.1 % (38.7-80.0); PLATELET COUNT 173 x10e3/uL (140-360); RED BLOOD COUNT 2.24 x10e6/uL (4.3-5.7); RED CELL DISTRIBUTION WIDTH 14.4 % (11.7-14.4)
[2018-03-06 04:43] LABS: HEMOGLOBIN 6.8 g/dL (14.0-18.0)
[2018-03-06 05:00] LABS: ANION GAP 13.4 mmol/L (8-16); BLOOD UREA NITROGEN 20 mg/dL (7-26); BUN/CREATININE RATIO 31 (6-25); CARBON DIOXIDE 23 mmol/L (22-29); CHLORIDE 111 mmol/L (98-107); CREATININE, SERUM 0.65 mg/dL (0.72-1.25); EST GLOMERULAR FILTRATION RATE > 60 ML/MIN (60-); GLUCOSE 144 mg/dL (74-118); POTASSIUM 3.4 mmol/L (3.5-5.1); SODIUM 144 mmol/L (136-145)
[2018-03-06] MEDS: CEFEPIME HCL 1 GM VIAL IV SCH ×2 (06:01→17:21)
[2018-03-06] MEDS ORDERED: SODIUM CHLORIDE 0.9% 250ML 250 ML IV ONE (08:00)
[2018-03-06] MEDS ORDERED: POTASSIUM CHLORIDE 20MEQ/100ML 100 ML IV ONE (08:15)
[2018-03-06 08:27] LABS: FERRITIN 820.84 ng/mL (21.81-274.66)
[2018-03-06] MEDS: ASPIRIN 81 MG ENTERIC COATED PO SCH (08:45)
[2018-03-06] MEDS: SENNOSIDES 8.6 MG TAB PO SCH (08:45)
[2018-03-06] MEDS: PANTOPRAZOLE 40 MG 10ML VIAL IV SCH ×2 (08:47→20:33)
[2018-03-06] MEDS: METRONIDAZOLE 500MG/NS 100ML 100 ML IV SCH ×2 (08:47→17:21)
[2018-03-06] MEDS: VANCOMYCIN 1GM/NS 250 ML 250 ML IV SCH ×2 (09:29→20:33)
[2018-03-06] MEDS: HEPARIN 25,000U/0.45% NS 250ML 900 UNIT in SODIUM CHLORIDE 0.9% 250ML 0 ML IV SCH (09:43)
--- NOTE | 2018-03-06 09:54 | Progress Note ---
DATE: March 06, 2018 CARDIOLOGY PROGRESS NOTE SUBJECTIVE: The patient is awake but does not respond to questions. He is planned for 3 units PRBC transfusion today due to acute drop in hemoglobin to 6.8. OBJECTIVE VITAL SIGNS: Temperature 98.4 degrees, pulse 60, respiratory rate 18, blood pressure 96/45, oxygen saturation 100% on room air. GENERAL: Chronically ill-appearing man in no acute distress. Awake but not interactive. LUNGS: Clear to auscultation bilaterally with no wheezes or crackles. CARDIOVASCULAR: Normal rate, regular rhythm. No murmur. Normal S1 and S2. ABDOMEN: Soft, nontender. EXTREMITIES: Gangrenous changes of the left 4th and 5th toes. Dopplerable left dorsalis pedis and posterior tibial arteries. CARDIAC MEDICATIONS: Aspirin 81 mg p.o. daily. LABS: WBC 20.78, hemoglobin 6.8, hematocrit 21.4, platelets 173. Sodium 144, potassium 3.4, chloride 111, CO2 23, BUN 20, creatinine 0.65. TELEMETRY: V-paced. IMPRESSION 1. Elevated troponin. 1. Peripheral arterial disease with acute occlusion of the left superficial femoral artery with thrombus. 2. Atrial fibrillation. 3. Coronary artery disease, status post prior myocardial infarction. 4. Reported history of congestive heart failure, status post biventricular implantable cardioverter-defibrillator. 5. Diabetes mellitus. 6. Hypertension. 7. Hyperlipidemia. 8. 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 RECOMMENDATIONS: Patient underwent coronary angiogram during admission without significant coronary artery disease. Left lower extremity peripheral angiogram revealed acute thrombosis in the distal left femoral artery and popliteal artery. He was treated with tPA infusion overnight with successful recanalization and aspiration thrombectomy, with resulting 2-vessel runoff to the foot. Given the patient's gangrenous changes of the toes, he may need amputation in the future. Podiatry is following. With regards to the patient's acute anemia, Eliquis was discontinued by primary. We will start heparin drip in the meantime. GI consultation is pending. Antibiotics per primary service. Thank you for this consult. Will continue to follow. Job#: [id number]
[2018-03-06] MEDS: FUROSEMIDE INJ 10 MG/ML 2 ML VIAL IV SCH ×2 (16:05→19:04)
[2018-03-07] VITALS (19 sets, daily range): BP systolic 110–150; BP diastolic 69–121
[2018-03-07] MEDS: METRONIDAZOLE 500MG/NS 100ML 100 ML IV SCH ×3 (01:31→18:35)
[2018-03-07] MEDS: CEFEPIME HCL 1 GM VIAL IV SCH ×2 (05:17→18:35)
[2018-03-07 06:14] LABS: BASOPHILS % 0.2 % (0.0-1.0); EOSINOPHILS # (AUTO) 0.1 (0.0-0.4); EOSINOPHILS % 0.7 % (0.0-6.0); HEMATOCRIT 29.5 % (38.2-49.6); HEMOGLOBIN 9.8 g/dL (14.0-18.0); LYMPHOCYTES % 6.1 % (18.0-39.1); MEAN CORPUSCULAR HEMOGLOBIN 29.5 pg (28-32); MEAN CORPUSCULAR HGB CONC 33.2 g/dL (31-35); MEAN CORPUSCULAR VOLUME 88.9 fL (81-99); MONOCYTES # (AUTO) 1.1 (0.2-0.8); MONOCYTES % 6.3 % (4.4-11.3); NEUTROPHILS # (AUTO) 14.6 (2.1-6.9); NEUTROPHILS % 85.5 % (38.7-80.0); PLATELET COUNT 147 x10e3/uL (140-360); RED BLOOD COUNT 3.32 x10e6/uL (4.3-5.7); RED CELL DISTRIBUTION WIDTH 16.6 % (11.7-14.4)
[2018-03-07 06:39] LABS: ANION GAP 13.2 mmol/L (8-16); BLOOD UREA NITROGEN 19 mg/dL (7-26); BUN/CREATININE RATIO 29 (6-25); CARBON DIOXIDE 23 mmol/L (22-29); CHLORIDE 110 mmol/L (98-107); CREATININE, SERUM 0.65 mg/dL (0.72-1.25); EST GLOMERULAR FILTRATION RATE > 60 ML/MIN (60-); GLUCOSE 113 mg/dL (74-118); POTASSIUM 3.2 mmol/L (3.5-5.1); SODIUM 143 mmol/L (136-145)
--- NOTE | 2018-03-07 07:21 | Diagnostic Imaging Report ---
EXAM: ABDOMEN-1VIEW (KUB) DATE: 03/07/2018 6:00 AM INDICATION: NG tube placement COMPARISON: None FINDINGS: Metallic tip feeding tube present with tip overlying left upper quadrant/stomach. Cholecystectomy clips present. Moderate stool. Degenerative changes spine. IMPRESSION: Feeding tube as above. Of note, no NG tube identified to correspond with clinical indication. Correlation recommended. Signed by: Dr. Faustino Styles MD on 03/07/2018 7:17 AM
[2018-03-07] MEDS: INSULIN REGULAR, HUMAN 100 UNIT/1 ML 3ML VIAL SQ SCH ×3 (07:30→16:30)
[2018-03-07] MEDS: ASPIRIN 81 MG ENTERIC COATED PO SCH (09:00)
[2018-03-07] MEDS: SENNOSIDES 8.6 MG TAB PO SCH (09:00)
[2018-03-07] MEDS: HEPARIN 25,000U/0.45% NS 250ML 900 UNIT in SODIUM CHLORIDE 0.9% 250ML 0 ML IV SCH (09:30)
[2018-03-07] MEDS: VANCOMYCIN 1GM/NS 250 ML 250 ML IV SCH (09:32)
[2018-03-07] MEDS: PANTOPRAZOLE 40 MG 10ML VIAL IV SCH (09:32)
--- NOTE | 2018-03-07 10:22 | Progress Note ---
DATE: March 07, 2018 CARDIOLOGY PROGRESS NOTE SUBJECTIVE: The patient is more interactive today. Denied chest pain or shortness of breath. OBJECTIVE VITAL SIGNS: Temperature 98 degrees, pulse 58, respiratory rate 16, blood pressure 138/86, oxygen saturation 100% on room air. GENERAL: Elderly man, chronically ill-appearing, in no acute distress. Awake and slightly more interactive. Will nod and shake his head in response to questions and state simple requests. LUNGS: Clear to auscultation bilaterally with no wheezes or crackles. CARDIOVASCULAR: Normal rate, regular rhythm. No murmur. Normal S1 and S2. ABDOMEN: Soft, nontender. EXTREMITIES: Gangrenous changes of the left 4th and 5th toes. CARDIAC MEDICATIONS 1. Aspirin 81 mg p.o. daily. 2. Heparin drip. LABS: WBC 17.08, hemoglobin 9.8, hematocrit 29.5, platelets 147. Sodium 143, potassium 3.2, chloride 110, CO2 23, BUN 19, creatinine 0.65. TELEMETRY: V-paced. IMPRESSION 1. Elevated troponin. 1. Peripheral arterial disease with acute occlusion of the left superficial femoral artery with thrombus. 2. Atrial fibrillation. 3. Coronary artery disease, status post prior myocardial infarction. 4. Reported history of congestive heart failure, status post biventricular implantable cardioverter-defibrillator. 5. Diabetes mellitus. 6. Hypertension. 7. Hyperlipidemia. 8. 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 RECOMMENDATIONS: Patient underwent coronary angiogram during admission without significant coronary artery disease. Left lower extremity peripheral angiogram revealed acute thrombus in the distal left femoral artery and popliteal artery. He was treated with tPA infusion overnight with successful recanalization and aspiration thrombectomy, with resulting 2-vessel runoff to the foot. Given the patient's gangrenous changes in the toes, he may need amputation in the future. Podiatry is following. Continue heparin drip pending GI evaluation. Continue aspirin. Antibiotics per primary service. Thank you for this consult. We will continue to follow. Job#: [id number]
--- NOTE | 2018-03-07 11:31 | Diagnostic Imaging Report ---
PROCEDURE:X-RAY ABDOMEN - KUB COMPARISON:None. INDICATIONS:DOBHOFF PLACEMENT FINDINGS:Exam is degraded by patient motion. Dobbhoff feeding tube extends below the diaphragm but is looped upon itself with the tip near the GE junction. There are no dilated loops of bowel to suggest obstruction. There are no masses or abnormal calcifications. There is no evidence of free air. Degenerative changes of the spine. CONCLUSION: Less than optimal technique with the Dobbhoff as described above. Srini Chaney D.O. Dictated by: Srini Chaney D.O. on 03/07/2018 at 11:39 Electronically approved by: Srini Chaney D.O. on 03/07/2018 at 11:39
[2018-03-07] MEDS ORDERED: POTASSIUM CHLORIDE 20 MEQ TAB CR PO STA (12:32)
[2018-03-07] MEDS ORDERED: MORPHINE SULFATE 2 MG/ML SYR ONE (12:32)
[2018-03-07] MEDS ORDERED: POTASSIUM CHLORIDE 20MEQ/15ML UDC NG STA (12:50)
--- NOTE | 2018-03-07 13:50 | Diagnostic Imaging Report ---
Tagged-RBC GI Bleed Study Clinical information: 77-year-old male with femoral artery occlusion and falling hemoglobin. Discussion: The patient's own red blood cells were labeled with 27 mCi of technetium-99m pertechnetate using the in vitro method (UltraTag). Dynamic images of the abdomen were obtained through 60 minutes. Distribution of tracer activity appears physiologic throughout the abdomen. No abnormal accumulation of tracer is seen within the gastrointestinal lumen. Impression: No scan evidence of active gastrointestinal bleeding at this time. Signed by: Dr. Aurora Denson M.D. on 03/07/2018 1:46 PM
[2018-03-07] MEDS ORDERED: QUETIAPINE FUMARATE 25 MG TAB PO SCH (21:00)
--- NOTE | 2018-03-09 00:35 | Progress Note ---
DATE: March 06, 2018 TIME: 6:45 a.m. OVERNIGHT: NG tube placed. He had worsening blood counts. REVIEW OF SYSTEMS: Not obtainable. OBJECTIVE VITAL SIGNS: Reviewed. GENERAL: A tired-appearing man, resting in bed. HEENT: Anicteric. NG tube in place. CARDIOVASCULAR: Normal S1 and S2. LUNGS: Moderate breath sounds. ABDOMEN: Soft and nontender. EXTREMITIES: Left foot blue-black changes. SKIN: Dry. PSYCHIATRIC: Flat affect. NEUROLOGICAL: Moves his extremities. LABS: Reviewed. MEDICATIONS: Reviewed. hemoglobin 6.7, LDL 48, and triglycerides 59. ASSESSMENT: This is a 77-year-old man with: 1. Acute limb ischemia of the left leg. 2. Acute thrombus of the superficial femoral artery in the left leg, status post thrombectomy and angiogram. 3. Diabetes mellitus type 2; hemoglobin A1c 6.7, LDL 48, and triglycerides 59. 4. Acute exacerbation of systolic congestive heart failure. 5. Elevated troponin. 6. Transaminitis. 7. Urinary tract infection. 8. Pulmonary edema. 9. Paroxysmal atrial fibrillation with left bundle branch block. 10. History of stroke. 11. Severe anemia, requiring blood transfusion. PLAN 1. Give 3 units of packed red blood cells transfusion. 2. He is on IV PPI b.i.d. 3. GI consultation. 4. The patient has Morganella morganii in the urine. 5. Continue antibiotics. 6. Physical therapy. 7. LTAC evaluation. Job#: [id number] DEMETRIUS
--- NOTE | 2018-03-09 00:44 | Discharge Summary ---
PRINCIPAL DIAGNOSES 1. Acute limb ischemia of the left foot. 2. Acute thrombus of the superficial femoral artery in the left leg, status post thrombectomy and angiogram. 3. Diabetes mellitus type 2; hemoglobin A1c 6.7, LDL 48, and triglycerides 59. 4. Acute exacerbation of systolic congestive heart failure. 5. Elevated troponin. 6. Transaminitis. 7. Urinary tract infection with Morganella morganii. 8. Pulmonary edema. 9. Paroxysmal atrial fibrillation with left bundle-branch block. 10. History of stroke. 11. Severe anemia requiring 3 units of packed red blood cells transfusion. 12. Hypokalemia. 13. Dysphagia. SECONDARY DIAGNOSIS: Diabetes mellitus type 2. CHIEF COMPLAINT: Ischemic left foot. HISTORY OF PRESENT ILLNESS: A 77-year-old man with ischemic left foot. Please refer to H and P for further details. HOSPITAL COURSE: Patient was found to have ischemic left foot in the skilled nursing and sent to the hospital for evaluation, underwent thrombectomy and angiogram. He has severe anemia, on apixaban, requiring 3 units of packed red blood cell transfusion. Bleeding scan was negative. He had transaminitis. He also had Morganella morganii urinary tract infection and pulmonary edema, paroxysmal atrial fibrillation, and left bundle-branch block. Patient was managed medically. He had dysphagia, requiring NG tube placement. Patient will now be transitioned to LTAC facility for continued care, may require amputation of the left foot at some point, but at this time, we will monitor closely and utilize heparin instead of apixaban due to the severe blood loss. DISCHARGE LOCATION: LTAC Facility. FOLLOW-UP: Follow up with medical team at LTAC facility. MELISSA CALZADA MD Job#: [id number] LPA
== END 2018-03-07 21:30 | DRG 853 ==
LOC: ER 16:40 → ERHOLD 20:11 → IMCU 21:40 → ICU 03-03 15:24
PROVIDERS: ADMIT Internal Medicine; ATTEND Internal Medicine
PROC: 04CK3ZZ Extirpation of Matter from Right Femoral Artery, Percutaneous Approach (ICD-10-PCS; principal; 2018-03-02)
PROC: 4A023N7 Measurement of Cardiac Sampling and Pressure, Left Heart, Percutaneous Approach (ICD-10-PCS; 2018-03-03)
PROC: B2111ZZ Fluoroscopy of Multiple Coronary Arteries using Low Osmolar Contrast (ICD-10-PCS; 2018-03-03)
PROC: B41D1ZZ Fluoroscopy of Aorta and Bilateral Lower Extremity Arteries using Low Osmolar Contrast (ICD-10-PCS; 2018-03-03)
PROC: 047Q3Z1 Dilation of Left Anterior Tibial Artery using Drug-Coated Balloon, Percutaneous Approach (ICD-10-PCS; 2018-03-04)
PROC: 047N3Z1 Dilation of Left Popliteal Artery using Drug-Coated Balloon, Percutaneous Approach (ICD-10-PCS; 2018-03-04)
PROC: 3E05317 Introduction of Other Thrombolytic into Peripheral Artery, Percutaneous Approach (ICD-10-PCS; 2018-03-04)
PROC: 30233N1 Transfusion of Nonautologous Red Blood Cells into Peripheral Vein, Percutaneous Approach (ICD-10-PCS; 2018-03-06)
DX: A41.9 Sepsis, unspecified organism (principal); I21.4 Non-ST elevation (NSTEMI) myocardial infarction; R65.21 Severe sepsis with septic shock; I50.23 Acute on chronic systolic (congestive) heart failure; E87.1 Hypo-osmolality and hyponatremia; I74.3 Embolism and thrombosis of arteries of the lower extremities; E11.52 Type 2 diabetes mellitus with diabetic peripheral angiopathy with gangrene; I96 Gangrene, not elsewhere classified; I69.354 Hemiplegia and hemiparesis following cerebral infarction affecting left non-dominant side; N39.0 Urinary tract infection, site not specified; Z79.4 Long term (current) use of insulin; I11.0 Hypertensive heart disease with heart failure; E78.5 Hyperlipidemia, unspecified; Z95.0 Presence of cardiac pacemaker; I69.320 Aphasia following cerebral infarction; I48.0 Paroxysmal atrial fibrillation; Z79.01 Long term (current) use of anticoagulants; E87.6 Hypokalemia; I44.7 Left bundle-branch block, unspecified; B96.89 Other specified bacterial agents as the cause of diseases classified elsewhere; R74.9 Abnormal serum enzyme level, unspecified; I99.8 Other disorder of circulatory system; W06.XXXA Fall from bed, initial encounter; Y92.122 Bedroom in nursing home as the place of occurrence of the external cause
CPT/HCPCS: 36247; 36415; 36430; 37186; 37211; 37225; 37228; 70450; 71045; 72125; 72170; 74018; 75625; 75710; 75716; 78278; 80048; 80053; 80061; 81001; 82150; 82550; 82553; 82607; 82728; 82948; 83036; 83540; 83605; 83690; 83735; 83880; 84466; 84484; 85014; 85018; 85025; 85610; 85730; 86850; 86900; 86920; 87040; 87086; 87186; 93005; 93306; 93454; 93925; 96372; 97139; 99284; A9512; C1725; C1769; J0583; J0692; J1644; J1940; J2001; J2250; J2270; J3370; J3480; J7030; J7050; P9016; Q9967

== ENCOUNTER 2018-03-28 13:22 | Inpatient (IN) | payer MEDICARE ==
[~2018-03-28] VITALS: Ht 167.6 cm; Wt 77.2 kg
[2018-03-28] MEDS: MEROPENEM 500MG 500 MG in SODIUM CHLORIDE 0.9% 50ML 50 ML IV SCH (05:34)
[2018-03-28] MEDS ORDERED: SODIUM CHLORIDE 0.9% 1000ML 1,000 ML IV STA (14:08)
[2018-03-28 14:23] LABS: BASOPHILS # (AUTO) 0.1 (0.0-0.1); BASOPHILS % 1.4 % (0.0-1.0); EOSINOPHILS # (AUTO) 0.3 (0.0-0.4); EOSINOPHILS % 3.9 % (0.0-6.0); HEMATOCRIT 35.1 % (38.2-49.6); HEMOGLOBIN 10.8 g/dL (14.0-18.0); LYMPHOCYTES % 15.5 % (18.0-39.1); MEAN CORPUSCULAR HEMOGLOBIN 30.8 pg (28-32); MEAN CORPUSCULAR HGB CONC 30.8 g/dL (31-35); MONOCYTES # (AUTO) 0.7 (0.2-0.8); MONOCYTES % 10.2 % (4.4-11.3); NEUTROPHILS # (AUTO) 4.4 (2.1-6.9); NEUTROPHILS % 68.1 % (38.7-80.0); PLATELET COUNT 160 x10e3/uL (140-360); RED BLOOD COUNT 3.51 x10e6/uL (4.3-5.7); RED CELL DISTRIBUTION WIDTH 19.7 % (11.7-14.4)
[2018-03-28 14:37] LABS: ALBUMIN 2.1 g/dL (3.5-5.0); ALBUMIN/GLOBULIN RATIO 0.4 (0.8-2.0); ALKALINE PHOSPHATASE 92 IU/L (40-150); ANION GAP 15.7 mmol/L (8-16); BLOOD UREA NITROGEN 44 mg/dL (7-26); BUN/CREATININE RATIO 52 (6-25); CALCIUM 8.9 mg/dL (8.4-10.2); CARBON DIOXIDE 34 mmol/L (22-29); CHLORIDE 106 mmol/L (98-107); CREATINE KINASE 34 IU/L (30-200); CREATININE, SERUM 0.85 mg/dL (0.72-1.25); EST GLOMERULAR FILTRATION RATE > 60 ML/MIN (60-); GLUCOSE 147 mg/dL (74-118); LIPASE 30 U/L (8-78); POTASSIUM 3.7 mmol/L (3.5-5.1); SODIUM 152 mmol/L (136-145)
[2018-03-28 14:38] LABS: ALANINE AMINOTRANSFERASE < 6 IU/L (0-55)
[2018-03-28 14:58] LABS: BILIRUBIN,URINE NEGATIVE (NEGATIVE); CLARITY,URINE CLOUDY (CLEAR); COLOR,URINE YELLOW (YELLOW); KETONES,URINE NEGATIVE (NEGATIVE); LEUKOCYTE ESTERASE ,URINE 2+ (NEGATIVE); NITRITE,URINE NEGATIVE (NEGATIVE); PROTEIN,URINE DIPSTICK 1+ (NEGATIVE); URINE UROBILINOGEN 0.2 mg/dL (0.2 - 1)
--- NOTE | 2018-03-28 15:06 | Diagnostic Imaging Report ---
EXAMINATION: CHEST SINGLE (PORTABLE) INDICATION: ^VERIFY PICC LINE COMPARISON: Chest radiograph 03/02/2018 FINDINGS: AP view TUBES and LINES: Interval placement of a right PICC with tip overlying the cavoatrial junction. 2-lead ICD device overlying the left midchest with with leads overlying the coronary sinus and right ventricle are not well visualized on this exam. LUNGS: Lungs are well inflated. Bilateral interstitial edema. No lobar consolidations. PLEURA: No pleural effusion or pneumothorax. HEART AND MEDIASTINUM: Stable mild enlargement of the cardiac silhouette. BONES AND SOFT TISSUES: No acute osseous lesion. Soft tissues are unremarkable. UPPER ABDOMEN: No free air under the diaphragm. IMPRESSION: Interval placement of a right PICC with tip overlying the cavoatrial junction. No pneumothorax. Signed by: Dr. Sil Lopez M.D. on 03/28/2018 3:03 PM
[2018-03-28 15:09] LABS: BACTERIA,URINE MANY /HPF; RBC,URINE 21-50 /HPF (0-5); YEAST,URINE MANY
[2018-03-28] MEDS ORDERED: SODIUM CHLORIDE 0.9% 1000ML 1,000 ML IV SCH (17:00)
[2018-03-28] MEDS ORDERED: ONDANSETRON HCL INJ 2 MG/ML VIAL IV PRN (17:00)
[2018-03-28] MEDS ORDERED: DEXTROSE 50% SYRINGE 50 ML IV PRN ×2 (17:15→21:30)
[2018-03-28] MEDS: SODIUM CHLORIDE 0.9% 1000ML 1,000 ML IV SCH (17:47)
[2018-03-28] MEDS ORDERED: LASIX40 MG PEG (17:53)
[2018-03-28] MEDS ORDERED: METRONIDAZ500 MG/100 IV (17:53)
[2018-03-28] MEDS ORDERED: ASPIRIN81 MG PEG (17:53)
[2018-03-28] MEDS ORDERED: COMBIVENT RESPIM4 GM IH (17:53)
[2018-03-28] MEDS ORDERED: AMPICILLIN SODIU2 GM (17:53)
[2018-03-28] MEDS ORDERED: CEFTRIAXON1 GM/50 M1 IV (17:53)
[2018-03-28] MEDS ORDERED: PROTONIX40 MG PEG (17:54)
[2018-03-28] MEDS ORDERED: QUETIAPINE FUMA25 MG PEG (17:54)
[2018-03-28] MEDS ORDERED: SENNA LAX8.6 MG PEG (17:54)
[2018-03-28] MEDS: VANCOMYCIN 1GM/NS 250 ML 250 ML IV SCH (18:08)
--- NOTE | 2018-03-28 18:49 | History and Physical ---
CHIEF COMPLAINT: Patient does not speak much, apparently has a history of stroke in the past. He is bedbound, came from a prison. HPI: This is a 77-year-old male, currently no family at bedside, who lives in a prison at [place]. It looks like he has had a history of a stroke in the past. There is no family member at bedside. He is bedbound, does not speak. He has a PEG tube who apparently came in with concerns of hypotension. According to the report from EMS and the ER physician here, apparently the patient had a low blood pressure systolically in the 50s according to the prison reports, but when EMS arrived, he was found to have a blood pressure in the 90s. Here, his blood pressure lowest was 109/59. He does look significantly dry on examination. I am unable to obtain any other information. Patient is at baseline, does not speak, and is currently bedbound. There is no family. REVIEW OF SYSTEMS: Unable to obtain, patient is nonverbal. ALLERGIES: NO KNOWN DRUG ALLERGIES. HOME MEDICATIONS: He takes aspirin 81 mg daily, Rocephin 1 gram daily for 7 days. He takes DuoNeb every 4 hours p.r.n. for shortness of breath, Lasix 40 mg daily, Protonix 40 mg twice a day, quetiapine 12.5 mg every 12 hours as needed for psychosis. He is currently just recently started on Rocephin and ampicillin at the prison. PAST MEDICAL HISTORY: History of heart failure with systolic dysfunction, muscle waiting and atrophy, and has a history of NSTEMI in the past. He had generalized weakness, hyperlipidemia, hypertension, AFib. Has a history of hemiplegia and hemiparesis due to CVAs in the past. He has acid reflux. He had some underlying history of CVA, type 2 diabetes, cardiomyopathy, dysphagia with a PEG tube. For right heart failure, he has a pacer. LABS: White count 6.4, hemoglobin 10.8, hematocrit is 35, platelets 160. Chemistry; sodium was 152, potassium 3.7, chloride is 106, bicarb 34, anion gap of 15, BUN 44, creatinine is 0.85, glucose 147, calcium 8.9, total bilirubin 0.9, AST 15, ALT 6. CK 34, troponin 0.588. Lipase is 30. Urinalysis consistent with UTI. His blood and urine cultures are collected and pending. IMAGING STUDIES: Chest x-ray is found to be negative. PHYSICAL EXAM VITAL SIGNS: Temperature is 99, pulse 66, respiratory rate is 15, blood pressure is 105/69, pulse ox is 100%. GENERAL: He is bedbound. Does not speak that is his baseline, history of CVA. HEENT: Head normocephalic, atraumatic. Eyes; pupils are equal, round, and reactive to light bilaterally. Extraocular movements are intact bilaterally. NECK: Supple. Good range of motion throughout. No evidence of any erythema or exudates in the posterior pharynx, has poor dentition. PULMONARY: Clear to auscultation bilaterally. No wheezing, no rales, no rhonchi, no crackles appreciated. CARDIOVASCULAR: Positive S1, S2. No murmurs, rubs, or gallops appreciated. ABDOMEN: Soft, nondistended, nontender to palpation. Bowel sounds present. MUSCULOSKELETAL: Unable to assess, patient is at baseline. NEUROLOGIC: Unable to assess, patient is at baseline aphasic. Does not speak SKIN: Intact. Warm to touch. Good cap refill. PSYCHIATRIC: At baseline, unable to speak, bedbound. EXTREMITIES: No edema. Good range of motion throughout. IMPRESSION 1. Sepsis, concern for underlying urinary tract infection with concerns of hypotension. 2. Bedbound due to history of cerebrovascular accident in the past. 3. History of hemiplegia and hemiparesis due to cerebrovascular accident in the past. 4. Type 2 diabetes. 5. History of heart failure with a pacemaker. 6. Medically debilitated. 7. Hyperlipidemia. 8. Hypernatremia. PLAN: At this time, blood and urine cultures were collected. Patient is on IV vancomycin and Zosyn. Patient will get another additional bolus of normal saline 1 liter and start on D5W at 75 mL per hour. Get a.m. labs. Resume same home medications with no changes at this time. Put on Lovenox for DVT prophylaxis. Resume tube feeds at home with no changes. Otherwise, we will continue with same plan of care. Job#: [id number] GANGA
[2018-03-28 18:50] VITALS: BP 143/64
[2018-03-28 20:00] VITALS: BP 115/73
[2018-03-28] MEDS: DEXTROSE 5% 1,000 ML IV SCH (21:00)
[2018-03-28 22:30] VITALS: BP 115/73
[2018-03-29] VITALS (8 sets, daily range): BP systolic 96–128; BP diastolic 55–70
[2018-03-29] MEDS: MEROPENEM 500MG 500 MG in SODIUM CHLORIDE 0.9% 50ML 50 ML IV SCH ×4 (00:30→18:11)
[2018-03-29] MEDS ORDERED: MEROPENEM 500 MG VIAL ONE ×5 (00:31→23:59)
[2018-03-29] MEDS: SODIUM CHLORIDE 0.9% 1000ML 1,000 ML IV SCH ×3 (03:00→23:00)
[2018-03-29] MEDS: DEXTROSE 5% 1,000 ML IV SCH ×3 (05:00→23:40)
[2018-03-29] MEDS: VANCOMYCIN 1GM/NS 250 ML 250 ML IV SCH ×2 (05:12→17:24)
[2018-03-29 05:36] LABS: BASOPHILS # (AUTO) 0.1 (0.0-0.1); BASOPHILS % 1.9 % (0.0-1.0); EOSINOPHILS # (AUTO) 0.3 (0.0-0.4); EOSINOPHILS % 5.1 % (0.0-6.0); HEMATOCRIT 34.6 % (38.2-49.6); HEMOGLOBIN 10.6 g/dL (14.0-18.0); LYMPHOCYTES # (AUTO) 0.7 (1.0-3.2); LYMPHOCYTES % 12.5 % (18.0-39.1); MEAN CORPUSCULAR HEMOGLOBIN 30.8 pg (28-32); MEAN CORPUSCULAR HGB CONC 30.6 g/dL (31-35); MEAN CORPUSCULAR VOLUME 100.6 fL (81-99); MONOCYTES # (AUTO) 0.6 (0.2-0.8); MONOCYTES % 10.4 % (4.4-11.3); NEUTROPHILS % 69.2 % (38.7-80.0); PLATELET COUNT 140 x10e3/uL (140-360); RED BLOOD COUNT 3.44 x10e6/uL (4.3-5.7); RED CELL DISTRIBUTION WIDTH 19.3 % (11.7-14.4)
[2018-03-29 05:57] LABS: ANION GAP 12.6 mmol/L (8-16); BLOOD UREA NITROGEN 40 mg/dL (7-26); BUN/CREATININE RATIO 52 (6-25); CALCIUM 8.6 mg/dL (8.4-10.2); CARBON DIOXIDE 31 mmol/L (22-29); CHLORIDE 110 mmol/L (98-107); CREATININE, SERUM 0.77 mg/dL (0.72-1.25); EST GLOMERULAR FILTRATION RATE > 60 ML/MIN (60-); GLUCOSE 224 mg/dL (74-118); POTASSIUM 3.6 mmol/L (3.5-5.1); SODIUM 150 mmol/L (136-145)
[2018-03-29] MEDS: ACETAMINOPHEN 325 MG TAB PO PRN (06:40)
[2018-03-29] MEDS: INSULIN REGULAR, HUMAN 100 UNIT/1 ML 3ML VIAL SQ SCH ×4 (08:41→20:45)
[2018-03-29] MEDS: ENOXAPARIN SOD INJ 40 MG/0.4 ML SYR SC SCH (17:24)
[2018-03-29] MEDS: FLUCONAZOLE 100 MG TAB PEG SCH (17:24)
--- NOTE | 2018-03-29 19:09 | Progress Note ---
DATE: March 29, 2018 SUBJECTIVE: Patient is at his baseline. He does not talk. He is bedbound. He is on tube feeds. OBJECTIVE VITAL SIGNS: Temperature is 97.5, pulse 60, respiratory rate is 18, blood pressure is 128/70, pulse ox 97% on room air. LAB FINDINGS: Show white count is 5.7, hemoglobin 10.6, hematocrit is 35, platelets of 140. Chemistries: Sodium 150, potassium 3.6, chloride 110, bicarb 31, anion gap of 12, BUN 40, and creatinine 0.77, glucose is 224, calcium 8.6. Urine culture shows so far Nuria albicans. Blood cultures are no growth to date. IMAGING STUDIES: None. PHYSICAL EXAMINATION GENERAL: Not in acute distress, alert, but not oriented, cooperative on examination. HEENT: Head: Normocephalic and atraumatic. Eyes: Pupils are equal, round and reactive to light bilaterally. Extraocular movements intact bilaterally. Throat: No evidence of any erythema or exudates in the posterior pharynx, has poor dentition. NECK: Supple with good range of motion. PULMONARY: Clear to auscultation bilaterally. No wheezing, no rales, no rhonchi appreciated. CARDIOVASCULAR: Positive S1 and S2. No murmurs, rubs, or gallops appreciated. ABDOMEN: Soft, nondistended, nontender to palpation. Bowel sounds present. MUSCULOSKELETAL: Unable to assess. NEUROLOGICAL: Unable to assess. SKIN: Intact. Warm to touch. Good capillary refill. PSYCHIATRIC: At baseline. EXTREMITIES: No edema. Good range of motion throughout. IMPRESSION 1. Sepsis due to underlying urinary tract infections with underlying hypotension, now improving. 2. Bedbound due to history of cerebrovascular accident in the past. 3. History of hemiplegia and hemiparesis due to cerebrovascular accident in the past. 4. Type 2 diabetes. 5. History of heart failure with pacemaker. 6. Medically debilitated. 7. Hyperlipidemia. 8. Hypernatremia. PLAN: At this time, his blood cultures were no growth to date. Urine cultures consistent with Nuria albicans, in which we are going to add Diflucan. Continue with IV antibiotics. He otherwise has improved. White count improved. He has been afebrile. Continue with insulin sliding scale. Tube feeds have been restarted. Continue with D5W as his sodium is stabilized. We are going to get a.m. labs as well. Continue with same plan of care. Job#: [id number] VAS
[2018-03-29] MEDS: METOPROLOL TARTRATE 25 MG TAB PO SCH (21:00)
[2018-03-29] MEDS: ATORVASTATIN 20 MG TAB PO SCH (21:17)
[2018-03-29] MEDS ORDERED: SODIUM CHLORIDE 0.9% 50ML 50 ML ONE (23:59)
[2018-03-30] VITALS (8 sets, daily range): BP systolic 101–108; BP diastolic 50–62
[2018-03-30] MEDS: MEROPENEM 500MG 500 MG in SODIUM CHLORIDE 0.9% 50ML 50 ML IV SCH ×5 (00:19→23:40)
--- NOTE | 2018-03-30 00:30 | Consultation ---
DATE OF CONSULTATION: March 29, 2018 CARDIOLOGY CONSULTATION REFERRING PHYSICIAN: Dr. Dany eHrnández. REASON FOR CONSULTATION: Abnormal troponins and hemodynamic instability. HISTORY OF PRESENT ILLNESS: Mr. Mota is a 77-year-old man who lives in a correction at [place]. He has a history of chronic severe systolic heart failure, CAD, peripheral arterial disease with prior revascularizations, CVA with residual hemiparesis, diabetes mellitus type 2, hyperlipidemia, status post cardiac pacing device, and history of atrial fibrillation. He is status post PEG tube with dysphagia, presents to [facility] after he was found to have hypotension with systolic blood pressure reportedly in the 50s at that time. When he arrived, he was resuscitated with improvement in his blood pressure. His urine analysis is concerning for urinary tract infection. Antibiotics have been initiated. He has a remote history of admissions with Morganella morganii UTI. He also has history of severe anemia requiring PRBC transfusions. Although, he is awake and answers questions, he is overall confused and poor historian; therefore, 12-system review is limited. He denies any active chest pain or any shortness of breath. He denies any active leg discomfort. REVIEW OF SYSTEMS: A 12-system review negative except for as noted above otherwise. ALLERGIES: NO KNOWN DRUG ALLERGIES. PAST MEDICAL HISTORY: As per HPI. SOCIAL HISTORY: No active smoking, alcohol, or drugs. Lives in [place]. FAMILY HISTORY: Noncontributory. PHYSICAL EXAMINATION VITAL SIGNS: Temperature 97.5, heart rate 60, respiratory rate 18, blood pressure 128/70, and O2 sat 97% on room air. GENERAL: In no acute distress, alert. NECK: No JVD. CHEST: Decreased breath sounds in bilateral bases. CARDIOVASCULAR: Irregularly irregular rate and rhythm. Normal S1 and S2. No S3 or S4. ABDOMEN: Soft. EXTREMITIES: Trace edema. CARDIOVASCULAR MEDICATIONS: Reviewed. Lovenox 40 mg subcutaneously daily and aspirin 81 mg daily. ASSESSMENT 1. Hypotension in the setting of volume depletion from severe sepsis, likely source urinary tract infection. 2. Atrial fibrillation. 3. History of cardiac pacing device, unspecified; records will be obtained. 4. Coronary artery disease. 5. Peripheral arterial disease. 6. Chronic left ventricular systolic heart failure. 7. Diabetes mellitus type 2. 8. History of anemia. 9. Abnormal troponins in the setting of the above. RECOMMENDATIONS: At this point, likely etiology for abnormal troponin is demand-supply mismatch in the setting of anemia, volume depletion, and sepsis. He seems to be responsive to IV fluids and antibiotics. Continue current care. Renal function is stable today. No active chest pain. Recommend to obtain echocardiogram. Follow cardiac enzymes. Continue aspirin. Monitor hemoglobin and hematocrit. Continue antibiotic care and medical aggressive management. Job#: [id number] NIRAV
[2018-03-30] MEDS: VANCOMYCIN 1GM/NS 250 ML 250 ML IV SCH ×2 (04:57→17:16)
[2018-03-30 05:17] LABS: BASOPHILS # (AUTO) 0.1 (0.0-0.1); EOSINOPHILS # (AUTO) 0.3 (0.0-0.4); EOSINOPHILS % 4.9 % (0.0-6.0); HEMATOCRIT 32.1 % (38.2-49.6); LYMPHOCYTES # (AUTO) 0.8 (1.0-3.2); LYMPHOCYTES % 15.6 % (18.0-39.1); MEAN CORPUSCULAR HEMOGLOBIN 30.8 pg (28-32); MEAN CORPUSCULAR HGB CONC 31.2 g/dL (31-35); MEAN CORPUSCULAR VOLUME 98.8 fL (81-99); MONOCYTES # (AUTO) 0.5 (0.2-0.8); MONOCYTES % 9.2 % (4.4-11.3); NEUTROPHILS # (AUTO) 3.5 (2.1-6.9); NEUTROPHILS % 67.3 % (38.7-80.0); PLATELET COUNT 130 x10e3/uL (140-360); RED BLOOD COUNT 3.25 x10e6/uL (4.3-5.7)
[2018-03-30] MEDS ORDERED: MEROPENEM 500 MG VIAL ONE ×4 (05:18→23:28)
[2018-03-30] MEDS ORDERED: SODIUM CHLORIDE 0.9% 50ML 50 ML ONE (05:18)
[2018-03-30 05:38] LABS: ANION GAP 12.4 mmol/L (8-16); BLOOD UREA NITROGEN 33 mg/dL (7-26); BUN/CREATININE RATIO 51 (6-25); CALCIUM 8.1 mg/dL (8.4-10.2); CARBON DIOXIDE 29 mmol/L (22-29); CHLORIDE 106 mmol/L (98-107); CREATININE, SERUM 0.65 mg/dL (0.72-1.25); EST GLOMERULAR FILTRATION RATE > 60 ML/MIN (60-); GLUCOSE 211 mg/dL (74-118); POTASSIUM 3.4 mmol/L (3.5-5.1); SODIUM 144 mmol/L (136-145)
[2018-03-30] MEDS: FLUCONAZOLE 100 MG TAB PEG SCH (08:25)
[2018-03-30] MEDS: ASPIRIN 81 MG CHEW TAB PO SCH (08:25)
[2018-03-30] MEDS: SODIUM CHLORIDE 0.9% 1000ML 1,000 ML IV SCH ×2 (08:25→19:00)
[2018-03-30] MEDS: METOPROLOL TARTRATE 25 MG TAB PO SCH ×2 (08:26→20:40)
[2018-03-30] MEDS: INSULIN REGULAR, HUMAN 100 UNIT/1 ML 3ML VIAL SQ SCH ×4 (08:28→20:40)
--- NOTE | 2018-03-30 12:19 | Progress Note ---
DATE: March 30, 2018 CARDIOLOGY PROGRESS NOTE SUBJECTIVE: Complains of hunger and thirst today. Denies chest pain or shortness of breath. OBJECTIVE VITAL SIGNS: Temperature 97.5, heart rate 60, blood pressure 102/57, respiratory rate 18, and O2 sat 96%. GENERAL: No acute distress, alert. CHEST: Clear to auscultation. CARDIOVASCULAR: Regular rate and rhythm. Normal S1 and S2. Systolic ejection murmur, /6. No S3. No S4. Paced rhythm on telemetry. ABDOMEN: Soft. EXTREMITIES: With no edema. CARDIOVASCULAR MEDICATIONS: Reviewed. 1. Metoprolol titrate 12.5 mg every 12 hours. 2. Meropenem, vancomycin, and fluconazole antibiotics. 3. Aspirin 81 mg daily. 4. Lovenox 40 mg subcu daily. 5. Atorvastatin 20 mg q.h.s. STUDIES: Reviewed. Sodium 144, potassium 3.4, chloride 106, bicarbonate 29, BUN 33, creatinine 0.6, and glucose 211. White blood cells 5.1, hemoglobin 10, platelets of 130. AST 15, ALT less than 6, alk phos 92, total bilirubin 0.9, lipase 30. ASSESSMENT 1. Hypotension in the setting of volume depletion and severe sepsis, likely source urinary tract infection. 2. Atrial fibrillation. 3. Status post cardiac pacing device. 4. Coronary artery disease. 5. Peripheral arterial disease. 6. Chronic systolic heart failure. 7. Diabetes mellitus type 2. 8. Anemia with hemoglobin of 10. 9. Abnormal troponin, type 2 myocardial infarction. RECOMMENDATIONS 1. At this point, continue volume resuscitation as well as treatment for sepsis. His initial 24-hour blood cultures are negative. His urine culture; however, seems to be growing Nuria, on fluconazole already. 2. Continue beta-henrry and statin. 3. Continue aspirin and monitor H and H. Job#: [id number] JESSICA
[2018-03-30] MEDS: DEXTROSE 5% 1,000 ML IV SCH (12:52)
[2018-03-30] MEDS ORDERED: POTASSIUM CHLORIDE 20MEQ/15ML UDC PEG NR (16:00)
--- NOTE | 2018-03-30 16:40 | Progress Note ---
DATE: March 30, 2018 SUBJECTIVE: Patient is much more alert today on examination. He talks words, but does not make sense. He is wanting some food, which he apparently has history of dysphagia and has tube feeds. VITAL SIGNS: Temperature is 97.6, pulse is 60, respiratory rate is 18, blood pressure is 108/62, pulse ox is 100% on room air. LAB FINDINGS: Show white count 5.1, hemoglobin 10, hematocrit 32, platelets of 130. Chemistries: Sodium 144, potassium is 3.4, chloride 106, bicarb 29, anion gap 12, BUN is 33, creatinine is 0.65, glucose is 211. MICROBIOLOGY: His urine culture is consistent with Nuria albicans, pending the rest of the culture. Blood cultures showed no growth today. IMAGING STUDIES: Chest x-ray showed no acute findings. PHYSICAL EXAMINATION GENERAL: Not in acute distress, alert and oriented x3, cooperative on examination. HEENT: Head normocephalic, atraumatic. Eyes: Pupils equal, round, and reactive to light bilaterally. Extraocular movements intact bilaterally. NECK: Supple with good range of motion. THROAT: No evidence of erythema or exudates in the posterior pharynx, has poor dentition. PULMONARY: Clear to auscultation bilaterally. No wheezing, no rales, no rhonchi, no crackles appreciated. CARDIOVASCULAR: Positive S1 and S2. No murmurs, rubs, or gallops appreciated. ABDOMEN: Soft, nondistended, nontender to palpation. Bowel sounds present. MUSCULOSKELETAL: Strength is 5/5 throughout. No evidence of any musculoskeletal deficit on examination. No weakness appreciated. NEUROLOGIC: Cranial nerves II through XII grossly intact. No evidence of neurological deficit on exam. SKIN: Intact. Warm to touch. Good capillary refill. PSYCHIATRIC: Normal affect and mood. EXTREMITIES: No edema. Good range of motion throughout. IMPRESSION 1. Sepsis due to underlying urinary tract infection with underlying hypotension, now with Nuria albicans in the urine. 2. Bedbound due to the history of cerebrovascular accident in the past. 3. 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 4. Type 2 diabetes. 5. History of heart failure with pacemaker. 6. Medically debilitated. 7. Hyperlipidemia. 8. Hypernatremia. PLAN: At this time, continue with IV antibiotics. Continue with Diflucan for Nuria albicans in the urine. Continue with D5W as sodium is slightly elevated. Continue with tube feeds as well. White count improved tremendously and he is afebrile and he is much more alert today on exam. Get a.m. labs. Otherwise, we will continue the same plan of care. Dr. Aponte will be available tomorrow to continue care on this patient. We will add potassium supplements through the PEG tube. Job#: [id number] JESSICA
[2018-03-30] MEDS: ENOXAPARIN SOD INJ 40 MG/0.4 ML SYR SC SCH (17:16)
[2018-03-30] MEDS: ACETAMINOPHEN 325 MG TAB PO PRN (20:40)
[2018-03-30] MEDS: ATORVASTATIN 20 MG TAB PO SCH (20:40)
[2018-03-31] VITALS (7 sets, daily range): BP systolic 96–120; BP diastolic 54–70
[2018-03-31] MEDS: DEXTROSE 5% 1,000 ML IV SCH ×3 (03:09→23:57)
[2018-03-31] MEDS: SODIUM CHLORIDE 0.9% 1000ML 1,000 ML IV SCH ×3 (05:00→23:54)
[2018-03-31] MEDS ORDERED: MEROPENEM 500 MG VIAL ONE ×5 (05:07→23:57)
[2018-03-31] MEDS: VANCOMYCIN 1GM/NS 250 ML 250 ML IV SCH (05:15)
[2018-03-31] MEDS: MEROPENEM 500MG 500 MG in SODIUM CHLORIDE 0.9% 50ML 50 ML IV SCH ×4 (05:34→23:57)
[2018-03-31 06:14] LABS: BASOPHILS # (AUTO) 0.1 (0.0-0.1); BASOPHILS % 1.5 % (0.0-1.0); EOSINOPHILS # (AUTO) 0.3 (0.0-0.4); EOSINOPHILS % 5.1 % (0.0-6.0); HEMATOCRIT 31.5 % (38.2-49.6); HEMOGLOBIN 9.8 g/dL (14.0-18.0); LYMPHOCYTES % 16.4 % (18.0-39.1); MEAN CORPUSCULAR HEMOGLOBIN 30.3 pg (28-32); MEAN CORPUSCULAR HGB CONC 31.1 g/dL (31-35); MEAN CORPUSCULAR VOLUME 97.5 fL (81-99); MONOCYTES # (AUTO) 0.7 (0.2-0.8); NEUTROPHILS # (AUTO) 3.8 (2.1-6.9); NEUTROPHILS % 64.6 % (38.7-80.0); PLATELET COUNT 136 x10e3/uL (140-360); RED BLOOD COUNT 3.23 x10e6/uL (4.3-5.7)
[2018-03-31 06:36] LABS: ANION GAP 12.9 mmol/L (8-16); BLOOD UREA NITROGEN 27 mg/dL (7-26); BUN/CREATININE RATIO 38 (6-25); CARBON DIOXIDE 27 mmol/L (22-29); CHLORIDE 102 mmol/L (98-107); CREATININE, SERUM 0.71 mg/dL (0.72-1.25); EST GLOMERULAR FILTRATION RATE > 60 ML/MIN (60-); GLUCOSE 178 mg/dL (74-118); POTASSIUM 3.9 mmol/L (3.5-5.1); SODIUM 138 mmol/L (136-145)
[2018-03-31] MEDS: METOPROLOL TARTRATE 25 MG TAB PO SCH ×2 (08:36→21:00)
[2018-03-31] MEDS: FLUCONAZOLE 100 MG TAB PEG SCH (08:55)
[2018-03-31] MEDS: ASPIRIN 81 MG CHEW TAB PO SCH (08:55)
[2018-03-31] MEDS: INSULIN REGULAR, HUMAN 100 UNIT/1 ML 3ML VIAL SQ SCH ×4 (08:56→21:00)
--- NOTE | 2018-03-31 12:33 | Progress Note ---
DATE: March 31, 2018 CARDIOLOGY PROGRESS NOTE SUBJECTIVE: No complaints today. OBJECTIVE VITAL SIGNS: Temperature 99.2, heart rate 62, respiratory rate 18, blood pressure 120/70, O2 sat 95% on nasal cannula. GENERAL: No acute distress. CHEST: Clear to auscultation. CARDIOVASCULAR: Regular rate and rhythm. Normal S1 and S2, on telemetry in paced rhythm with underlying AFib. Systolic ejection murmur 2/6. No S3, no S4. ABDOMEN: Soft and nontender. EXTREMITIES: No edema. Left toes and forefoot with dry gangrene. No associated erythema or secretion. Heel protectors in place. MEDICATIONS: Reviewed. 1. Aspirin 81 mg daily. 2. Atorvastatin 20 mg nightly. 3. Lovenox 40 mg subcutaneous daily. 4. Metoprolol tartrate 12.5 mg every 12 hours. STUDIES: Reviewed. White blood cells 5.9, hemoglobin 9.8, platelets 136. Sodium 138, potassium 3.9, chloride 102, bicarbonate 27, BUN 27, creatinine 0.7, glucose 193, calcium 8. ASSESSMENT 1. Hypotension in the setting of volume depletion and severe sepsis likely the source of urinary tract infection. 2. Atrial fibrillation. 3. Status post cardiac pacing device. 4. Coronary artery disease. 5. 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 6. Chronic systolic heart failure. 7. Diabetes mellitus type 2. 8. Anemia with hemoglobin of 10. 9. Abnormal troponin resulting from type II myocardial infarction in the setting of acute heart failure exacerbation and hypotension. RECOMMENDATIONS: Echocardiogram reviewed. Left ventricular systolic function in the 30% to 35% range. Severe LVH. Four-chamber enlargement. RVSP of 46. Mild MR, mild TR. Leads noted in the right-sided chambers. Clinically improving. Blood cultures being monitored, so far no growth after 48 hours. Urine culture growing Nuria albicans. Patient is status post recent revascularization to the left lower extremity. Overall guarded for prognosis. No evidence of overt infection on clinical grounds at the foot level with dry gangrene. Continue to monitor closely. Podiatry followup advised as outpatient. Job#: [id number] EV
[2018-03-31] MEDS: ENOXAPARIN SOD INJ 40 MG/0.4 ML SYR SC SCH (16:54)
[2018-03-31] MEDS: ATORVASTATIN 20 MG TAB PO SCH (22:20)
[2018-03-31] MEDS: ACETAMINOPHEN 325 MG TAB PO PRN (22:30)
[2018-03-31] MEDS ORDERED: SODIUM CHLORIDE 0.9% 50ML 50 ML ONE ×2 (23:53→23:57)
[2018-04-01] VITALS: BP 113/68
[2018-04-01 04:00] VITALS: BP 113/69
[2018-04-01] MEDS ORDERED: MEROPENEM 500 MG VIAL ONE ×2 (04:57→12:13)
[2018-04-01] MEDS ORDERED: SODIUM CHLORIDE 0.9% 50ML 50 ML ONE (04:57)
[2018-04-01] MEDS: MEROPENEM 500MG 500 MG in SODIUM CHLORIDE 0.9% 50ML 50 ML IV SCH ×2 (05:57→12:19)
[2018-04-01 06:43] LABS: BASOPHILS # (AUTO) 0.1 (0.0-0.1); BASOPHILS % 1.5 % (0.0-1.0); EOSINOPHILS # (AUTO) 0.3 (0.0-0.4); EOSINOPHILS % 4.2 % (0.0-6.0); HEMATOCRIT 33.2 % (38.2-49.6); HEMOGLOBIN 10.4 g/dL (14.0-18.0); LYMPHOCYTES # (AUTO) 1.1 (1.0-3.2); LYMPHOCYTES % 17.4 % (18.0-39.1); MEAN CORPUSCULAR HEMOGLOBIN 30.9 pg (28-32); MEAN CORPUSCULAR HGB CONC 31.3 g/dL (31-35); MEAN CORPUSCULAR VOLUME 98.5 fL (81-99); MONOCYTES # (AUTO) 0.7 (0.2-0.8); MONOCYTES % 11.5 % (4.4-11.3); NEUTROPHILS % 64.1 % (38.7-80.0); PLATELET COUNT 126 x10e3/uL (140-360); RED BLOOD COUNT 3.37 x10e6/uL (4.3-5.7); RED CELL DISTRIBUTION WIDTH 19.1 % (11.7-14.4)
[2018-04-01 07:00] LABS: ANION GAP 8.9 mmol/L (8-16); BLOOD UREA NITROGEN 21 mg/dL (7-26); BUN/CREATININE RATIO 28 (6-25); CALCIUM 8.3 mg/dL (8.4-10.2); CARBON DIOXIDE 31 mmol/L (22-29); CHLORIDE 98 mmol/L (98-107); CREATININE, SERUM 0.74 mg/dL (0.72-1.25); EST GLOMERULAR FILTRATION RATE > 60 ML/MIN (60-); GLUCOSE 177 mg/dL (74-118); POTASSIUM 3.9 mmol/L (3.5-5.1); SODIUM 134 mmol/L (136-145)
[2018-04-01] MEDS: METOPROLOL TARTRATE 25 MG TAB PO SCH (08:05)
[2018-04-01 08:20] VITALS: BP 110/60
[2018-04-01] MEDS: INSULIN REGULAR, HUMAN 100 UNIT/1 ML 3ML VIAL SQ SCH ×3 (08:26→16:39)
[2018-04-01] MEDS: ASPIRIN 81 MG CHEW TAB PO SCH (08:26)
[2018-04-01] MEDS: FLUCONAZOLE 100 MG TAB PEG SCH (08:26)
[2018-04-01] MEDS ORDERED: BALSAM PERU/CASTOR OIL 5 GM OINT...G. TP SCH (09:00)
[2018-04-01] MEDS: SODIUM CHLORIDE 0.9% 1000ML 1,000 ML IV SCH (11:00)
[2018-04-01 11:52] VITALS: BP 116/67
--- NOTE | 2018-04-01 13:38 | Progress Note ---
DATE: April 01, 2018 CARDIOLOGY PROGRESS NOTE SUBJECTIVE: No complaints. OBJECTIVE VITAL SIGNS: Temperature 97.5, heart rate 60, respiratory rate 16, blood pressure 116/67, O2 sat 100%. GENERAL: No acute distress. CHEST: Clear to auscultation. CARDIOVASCULAR: Regular rate and rhythm. Normal S1 and S2. No S3. No S4. Systolic ejection murmur 2/6. ABDOMEN: Soft. Nontender. EXTREMITIES: No edema. Left toes and forefoot with dry gangrene. No associated erythema or secretion. Heel protectors are in place. CARDIOVASCULAR MEDICATIONS: Reviewed. 1. Aspirin 81 mg daily. 2. Atorvastatin 20 mg nightly. 3. Lovenox 40 mg subcutaneous daily. 4. Metoprolol tartrate 12.5 mg every 12 hours. STUDIES: Reviewed. White blood cells 6.2, hemoglobin 10.4, platelets 126. Sodium 134, potassium 3.9, chloride 98, bicarbonate 31, BUN 21, creatinine 0.74, glucose 176. Blood cultures are negative x72 hours. Urine culture is positive for john. ASSESSMENT 1. Hypertensive episode in the setting of volume depletion and severe sepsis, likely the source for urinary tract infection. 2. Urinary tract infection undergoing antibiotic therapy. 3. Atrial fibrillation. 4. History of cardiac pacing device. 5. Coronary artery disease. 6. Peripheral arterial disease status post revascularization with dry gangrene to left forefoot. 7. Chronic systolic heart failure. 8. Diabetes mellitus, type 2. 9. Anemia with hemoglobin of 10. 10. Abnormal troponin resulting from type-II myocardial infarction in the setting of acute heart failure exacerbation and hypotension. 11. [id number] severe systolic heart failure with left ventricular ejection fraction 30% to 35%. 12. Severe left ventricular hypertrophy. RECOMMENDATIONS 1. Continue antibiotics. 2. Continue wound care. 3. Consider adding long-term anticoagulation in the setting of atrial fibrillation, transitioning to Eliquis in addition to the rest of the current cardiovascular medications. Job#: [id number]
--- NOTE | 2018-04-01 14:02 | Consultation ---
DATE OF CONSULTATION: April 01, 2018 INFECTIOUS DISEASE CONSULTATION ATTENDING PHYSICIAN: Dr. Fadi Baeza. REASON FOR CONSULTATION: Sepsis, urinary tract infection and soft-tissue infection. Thank you, Dr. Aponte, for asking me to see this patient. HISTORY OF PRESENT ILLNESS: The patient is a 77-year-old man referred for sepsis, urinary tract infection and soft-tissue infection. He is unable to give history. The chart review showed that he was admitted through the emergency department with dehydration and hyponatremia. The patient was [facility] to the [facility] department from a [facility] with hypotension soon after the patient was [facility] to the [facility] hospital. There was no documented fever. 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 The ulcer and the ischemic change was particularly worse with the left 5th toe. The patient responded well with management including left lower extremity angioplasty and intravenous antibiotic. In the emergency department, he was noted to have a temperature of 99 degrees Fahrenheit, pulse 58, respiratory rate 17, blood pressure 109/59 and oxygen saturation 100% on room air. Initial laboratory studies showed blood leukocyte count of 6470, serum sodium 152, BUN 44 and creatinine 0.88. Urine culture later grew Nuria albicans, and blood culture showed no growth. Chest x-ray showed no lobar pneumonia. PAST MEDICAL HISTORY: Diabetes mellitus type 2, hypertension, hyperlipidemia, coronary artery disease, atrial fibrillation, congestive heart failure, cerebrovascular accident, peripheral arterial disease and dysphagia. PAST SURGICAL HISTORY: AICD implant, PEG tube placement, and left lower extremity angioplasty. MEDICATIONS: See MAR. The current antimicrobials are meropenem 500 mg IV piggyback q.6 hours and fluconazole 100 mg per feeding tube daily. He received intravenous vancomycin earlier. IMMUNIZATIONS: Unable to verify influenza and pneumococcal vaccination status. FAMILY HISTORY: Noncontributory. SOCIAL HISTORY: He is a [facility] resident. No current alcohol or tobacco use. REVIEW OF SYSTEMS: Unable to obtain. PHYSICAL EXAMINATION: GENERAL: No acute distress and does not appear toxic. VITALS: T-max 98.9, pulse 61, respiratory rate 16, blood pressure 116/67, weight 170 pounds. HEENT: Atraumatic. There is no icterus or injection of conjunctivae. There is no ear or nasal discharge. Dry oral mucosa with poor dentition. No pharyngeal erythema or exudate. NECK: Supple. No meningismus. LUNGS: Good air entry bilaterally. HEART: Normal S1 and S2. ABDOMEN: The PEG tube site is clean. Soft, nontender. EXTREMITIES: The left forefoot is with a dark scab. There is no erythema or discharge. The dorsalis pedis and posterior tibial pulses are weak to palpation in both feet. SKIN: As per extremities. SHOP ESTIMATOR: Patient is awake. LABORATORY DATA: WBC 6200, hemoglobin 10.4, platelet 126,000, neutrophil 64.1, lymph 17.4, mono 11.5, eosinophil 4.2, basophil 1.5. BUN 21, creatinine 0.74, serum sodium 134, blood glucose 176. IMPRESSION: 1. Hypotension was likely secondary to dehydration. 2. Left foot ulcer. 3. Peripheral arterial disease status post angioplasty. 4. Diabetes mellitus type 2, controlled. 5. Coronary artery disease. 6. Atrial fibrillation. 7. Late effect of stroke. 8. ? Nuria urinary tract infection versus colonization. PLAN: Continue local wound care and cautious fluid management. Stop meropenem. Job#: [id number] EV MTDD
[2018-04-01] MEDS: DEXTROSE 5% 1,000 ML IV SCH (14:26)
[2018-04-01 16:00] VITALS: BP 110/57
[2018-04-01] MEDS: ENOXAPARIN SOD INJ 40 MG/0.4 ML SYR SC SCH (16:39)
[2018-04-02] MEDS ORDERED: CLOPIDOGREL BISULFATE 75 MG TAB PO SCH (09:00)
== END 2018-04-01 18:04 | DRG 871 ==
LOC: ER 13:22 → ERHOLD 16:53 → MED/SURG2 18:40 → OBSVTOIN 03-31 12:53
PROVIDERS: ADMIT Internal Medicine; ATTEND Internal Medicine
DX: A41.9 Sepsis, unspecified organism (principal); I50.23 Acute on chronic systolic (congestive) heart failure; I21.A1 Myocardial infarction type 2; E87.1 Hypo-osmolality and hyponatremia; I69.359 Hemiplegia and hemiparesis following cerebral infarction affecting unspecified side; E87.0 Hyperosmolality and hypernatremia; B37.49 Other urogenital candidiasis; E86.0 Dehydration; I48.91 Unspecified atrial fibrillation; I11.0 Hypertensive heart disease with heart failure; R65.20 Severe sepsis without septic shock; Z74.01 Bed confinement status; E11.9 Type 2 diabetes mellitus without complications; E78.5 Hyperlipidemia, unspecified; R53.81 Other malaise; D64.9 Anemia, unspecified; Z95.810 Presence of automatic (implantable) cardiac defibrillator; L97.529 Non-pressure chronic ulcer of other part of left foot with unspecified severity; Z93.1 Gastrostomy status; I73.9 Peripheral vascular disease, unspecified; Z79.4 Long term (current) use of insulin
CPT/HCPCS: 36415; 71045; 80048; 80053; 80202; 81001; 82550; 82553; 82948; 83690; 84484; 85025; 87040; 87086; 93005; 93306; 99285; G0378; J1650; J2185; J3370; J7030; J7070

== ENCOUNTER 2018-04-03 07:59 | Emergency (ER) | payer MEDICARE ==
[~2018-04-03] VITALS: Ht 167.6 cm; Wt 77.1 kg
[~2018-04-03 07:59] MED LIST: AMPICILLIN SODIU2 GM; ASPIRIN81 MG PEG; CEFTRIAXON1 GM/50 M1 IV; COMBIVENT RESPIM4 GM IH; LASIX40 MG PEG; METRONIDAZ500 MG/100 IV; PROTONIX40 MG PEG; QUETIAPINE FUMA25 MG PEG; SENNA LAX8.6 MG PEG
[2018-04-03] MEDS ORDERED: LIPITOR20 MG PEG (08:33)
[2018-04-03] MEDS ORDERED: FLUCONAZOLE100 MG PEG (08:33)
[2018-04-03] MEDS ORDERED: HUMULIN R100 UNIT/2 SC (08:33)
[2018-04-03] MEDS ORDERED: ENOXAPARIN40 MG/0.4 SC (08:37)
[2018-04-03] MEDS ORDERED: PLAVIX75 MG PEG (08:37)
[2018-04-03] MEDS ORDERED: MEROPENEM500 MG IV (08:37)
[2018-04-03] MEDS ORDERED: METOPROLOL TART25 MG PEG (08:37)
[2018-04-03 09:23] LABS: BASOPHILS # (AUTO) 0.1 (0.0-0.1); BASOPHILS % 0.9 % (0.0-1.0); EOSINOPHILS # (AUTO) 0.2 (0.0-0.4); EOSINOPHILS % 3.5 % (0.0-6.0); HEMATOCRIT 36.2 % (38.2-49.6); HEMOGLOBIN 11.1 g/dL (14.0-18.0); LYMPHOCYTES # (AUTO) 0.9 (1.0-3.2); LYMPHOCYTES % 12.8 % (18.0-39.1); MEAN CORPUSCULAR HEMOGLOBIN 30.7 pg (28-32); MEAN CORPUSCULAR HGB CONC 30.7 g/dL (31-35); MEAN CORPUSCULAR VOLUME 100.3 fL (81-99); MONOCYTES # (AUTO) 0.6 (0.2-0.8); MONOCYTES % 8.7 % (4.4-11.3); NEUTROPHILS # (AUTO) 4.9 (2.1-6.9); NEUTROPHILS % 72.9 % (38.7-80.0); PLATELET COUNT 133 x10e3/uL (140-360); RED BLOOD COUNT 3.61 x10e6/uL (4.3-5.7); RED CELL DISTRIBUTION WIDTH 19.4 % (11.7-14.4)
--- NOTE | 2018-04-03 09:35 | Diagnostic Imaging Report ---
History:Fall Comparison studies:CT head 03/02/2018 Technique: Axial images were obtained from the skull base to the vertex. Coronal and sagittal images reconstructed from the axial data. Intravenous contrast: None Dose modulation, iterative reconstruction, and/or weight based adjustment of the mA/kV was utilized to reduce the radiation dose to as low as reasonably achievable. Findings: Scalp/skull: No abnormalities. Extra-axial spaces: No masses. No fluid collections. Brain sulci: Mildly prominent. Ventricles: Mild compensatory dilatation. No hydrocephalus. Parenchyma: Scattered and confluent hypodensities in the supratentorial white matter are small vessel ischemic changes. Cortical-based hypodensity in the right occipital lobe, most likely the sequela from remote infarct in the right posterior cerebral artery distribution, stable. Small chronic lacunar infarct in the left putamen and right posterior lentiform nucleus as well as the bilateral frontal deep white matter, stable. No masses, hemorrhage or acute cortical vascular insults. Sellar/suprasellar region: No abnormalities. Craniocervical junction: Patent foramen magnum. No Chiari one malformation. Incidental findings: Atherosclerotic calcifications in the carotid siphons vertebral arteries . Impression: No acute abnormalities. No significant change from previous examination Chronic findings: 1. Moderate generalized volume loss. 2. Moderate supratentorial white matter small vessel ischemic changes. 3. Remote insult at the right occipital lobe. Signed by: DR Hank Gilmore M.D. on 04/03/2018 9:32 AM
[2018-04-03 09:53] LABS: ANION GAP 9.3 mmol/L (8-16); BLOOD UREA NITROGEN 26 mg/dL (7-26); BUN/CREATININE RATIO 40 (6-25); CALCIUM 8.8 mg/dL (8.4-10.2); CARBON DIOXIDE 29 mmol/L (22-29); CHLORIDE 99 mmol/L (98-107); CREATININE, SERUM 0.65 mg/dL (0.72-1.25); EST GLOMERULAR FILTRATION RATE > 60 ML/MIN (60-); GLUCOSE 129 mg/dL (74-118); POTASSIUM 4.3 mmol/L (3.5-5.1); SODIUM 133 mmol/L (136-145)
== END 2018-04-03 10:48 ==
LOC: ER 07:59
DX: S00.83XA Contusion of other part of head, initial encounter (principal); W06.XXXA Fall from bed, initial encounter; Y93.84 Activity, sleeping; Y92.122 Bedroom in nursing home as the place of occurrence of the external cause; I10 Essential (primary) hypertension; E11.9 Type 2 diabetes mellitus without complications; I48.91 Unspecified atrial fibrillation; I25.2 Old myocardial infarction; Z95.810 Presence of automatic (implantable) cardiac defibrillator
CPT/HCPCS: 36415; 70450; 80048; 85025; 99284